=== PATIENT | male | born 1955 | race Caucasian/White ===

== ENCOUNTER 2018-10-06 20:04 | Inpatient (IN) | payer MEDICARE, OTHER, SELFPAY ==
[2018-10-06] VITALS (10 sets, daily range): BP systolic 115–181; BP diastolic 67–85; PULSE 94–103; RESP 15–25; TEMP 36.7–37.3; O2SAT 88–99; BMI 27.6; BMI 26.6; BMI 26.7
[2018-10-06] MEDS: 0.9% Normal Saline 1,000 ML 1000 ML IV ×2 (20:10→21:30)
[2018-10-06 20:16] LABS: Bedside Glucose > 500 mg/dL (70-110)
[2018-10-06 20:31] LABS: Absolute Lymphocyte Count 0.87 X10^3/ul (0.83-4.51); Absolute Neutrophil Count 7.8 X10^3/uL (2.0-7.7); Basophil# 0.02 X10^3/uL; Basophil% 0.2 % (0-1); Eosinophil# 0.01 X10^3/uL; Eosinophils% 0.1 % (0-5); Hematocrit 42.4 % (40-54); Hemoglobin 14.8 g/dl (13.0-16.5); Lymphocyte # 0.87 X10^3/ul (4.0); Lymphocyte % 9.6 % (19-41); Mean Corp Hgb Conc 34.9 g/gl (32-36); Mean Corpuscular Hgb 29.8 pg (27.0-32.0); Mean Corpuscular Volume 85.5 fL (80-94); Mean Platelet Vol. 11.8 fl (6.2-12.0); Monocyte# 0.37 X10^3/uL; Monocyte% 4.1 % (0-10); Neutrophil # 7.79 X10^3/uL (2.7-7.7); Neutrophil % 85.7 % (47-70); Platelet Count 250 K/mm3 (150-450); RBC Distribution Width CV 12.3 % (11.6-14.6); RBC Distribution Width SD 37.8 fl (35.1-43.9); Red Blood Count 4.96 M/mm3 (4.6-6.2); White Blood Count 9.1 K/mm3 (4.4-11.0)
[2018-10-06 20:32] LABS: POSITIVE COUNT NO; POSITIVE DIFFERENTIAL NO; POSITIVE MORPHOLOGY NO
[2018-10-06 20:46] LABS: Anion Gap 9 (5-15); BUN 44 mg/dL (7-18); BUN/Creat Ratio 19.6 RATIO (10-20); Calcium,Total 9.2 mg/dL (8.5-10.1); Chloride 82 mmol/L (98-107); Creatinine, Serum 2.25 mg/dL (0.70-1.30); EST Glomerular Filtration Rate 31 mL/min (>60); Est Glom Filt Rate - Afr Amer 38 mL/min (>60); Estimated Creatinine Clearance 34.86 ml/min; Glucose 1083 mg/dL (74-106); Potassium 5.2 mmol/L (3.5-5.1); Sodium Level 118 mmol/L (136-145)
--- NOTE | 2018-10-06 20:48 | ED.RN ---
CRITICAL LAB VALUES GIVEN TO RN AND PLACED ON CHART FOR MD TO REVIEW.
[2018-10-06 20:53] LABS: Bacteria 0 SEEN /hpf (None Seen); Mucous, Urine 0 SEEN /hpf (<or=2+); Red Blood Cells-Urine 0 SEEN /hpf (0-5); Squamous Epithelial Cells - UA 0 SEEN /hpf (0-5); White Blood Cells 0 SEEN /hpf (0-5)
[2018-10-06 20:57] LABS: Color, Urine Yellow (Yellow); Glucose, Dipstick 1000 mg/dl (Normal); Ketone-Dipstick Negative (Negative); Leukocyte Esterase-Dipstick Negative /ul (Negative); Nitrite-Dipstick Negative (Negative); Occult Blood-Urine Negative /ul (Negative); Protein-Dipstick Negative (Negative); Urine Bilirubin Dipstick Negative (Negative); Urine Clarity Clear (Clear); Urine Urobilinogen Normal (Normal)
--- NOTE | 2018-10-06 21:01 | NURSING ---
Pt straight cath for 1600cc of clear yellow urine. pt tolerated it well
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
[2018-10-06] MEDS: 0.9% Normal Saline 1,000 ML 250 ML IV (21:39)
[2018-10-06 21:43] LABS: AST(SGOT) 13 U/L (15-37); Alanine Aminotransfer ALT/SGPT 28 U/L (16-61); Albumin, Serum 3.6 g/dL (3.2-5.0); Alkaline Phosphatase 175 U/L (45-117); Bilirubin, Direct 0.16 mg/dL (0.00-0.30); Globulin 4.8 g/dL (2.2-4.2); Protein, Total 8.4 g/dL (6.4-8.2)
[2018-10-06 21:55] LABS: Bedside Glucose > 500 mg/dL (70-110)
[2018-10-06 22:36] LABS: Osmolality, Serum 331 mOsm/KG (280-301)
[2018-10-06 22:54] LABS: Anion Gap 9 (5-15); BUN 40 mg/dL (7-18); BUN/Creat Ratio 23.4 RATIO (10-20); Calcium,Total 8.3 mg/dL (8.5-10.1); Chloride 97 mmol/L (98-107); Creatinine, Serum 1.71 mg/dL (0.70-1.30); EST Glomerular Filtration Rate 43 mL/min (>60); Est Glom Filt Rate - Afr Amer 52 mL/min (>60); Estimated Creatinine Clearance 45.87 ml/min; Glucose 746 mg/dL (74-106); Potassium 3.8 mmol/L (3.5-5.1); Sodium Level 130 mmol/L (136-145)
--- NOTE | 2018-10-06 22:54 | NURSING ---
Patient's wallet given to Araseli Ho, daughter. Cellphone at bedside.
[2018-10-06 23:06] LABS: Bedside Glucose > 500 mg/dL (70-110)
[2018-10-06] MEDS: 0.9% NaCl IVPB Med Flush (250 mL) 15 ML IV (23:30)
[2018-10-06] MEDS: Potassium Chloride 10mEq/100mL 10 MEQ/100 ML IV.SOLN. 100 MEQ IV BOLUS (23:31)
[2018-10-07] VITALS (16 sets, daily range): BP systolic 116–167; BP diastolic 57–88; PULSE 81–102; RESP 14–19; TEMP 36.6–37.2; O2SAT 92–100
[2018-10-07 00:06] LABS: Bedside Glucose > 500 mg/dL (70-110)
[2018-10-07 00:25] LABS: Glucose 640 mg/dL (74-106)
[2018-10-07] MEDS: Potassium Chloride 40 MEQ in 0.45% Normal Saline 1,000 ML 150 MEQ IV (00:29)
[2018-10-07] MEDS: Potassium Chloride 10mEq/100mL 10 MEQ/100 ML IV.SOLN. 100 MEQ IV BOLUS ×3 (00:31→02:50)
[2018-10-07 01:41] LABS: Bedside Glucose 438 mg/dL (70-110)
[2018-10-07 03:42] LABS: Bedside Glucose 411 mg/dL (70-110)
[2018-10-07 03:42] LABS: Bedside Glucose 425 mg/dL (70-110)
[2018-10-07 03:44] LABS: Anion Gap 9 (5-15); BUN 33 mg/dL (7-18); BUN/Creat Ratio 21.7 RATIO (10-20); Calcium,Total 8.8 mg/dL (8.5-10.1); Chloride 102 mmol/L (98-107); Creatinine, Serum 1.52 mg/dL (0.70-1.30); EST Glomerular Filtration Rate 49 mL/min (>60); Est Glom Filt Rate - Afr Amer 59 mL/min (>60); Glucose 456 mg/dL (74-106); Potassium 4.6 mmol/L (3.5-5.1); Sodium Level 139 mmol/L (136-145)
[2018-10-07 04:36] LABS: Bedside Glucose 400 mg/dL (70-110)
[2018-10-07 05:36] LABS: Bedside Glucose 364 mg/dL (70-110)
[2018-10-07] MEDS: Lactated Ringers 1,000 ML 999 ML IV (06:34)
[2018-10-07 06:41] LABS: Bedside Glucose 318 mg/dL (70-110)
[2018-10-07 07:07] LABS: Anion Gap 6 (5-15); BUN 30 mg/dL (7-18); BUN/Creat Ratio 21.1 RATIO (10-20); Calcium,Total 8.8 mg/dL (8.5-10.1); Chloride 106 mmol/L (98-107); Creatinine, Serum 1.42 mg/dL (0.70-1.30); EST Glomerular Filtration Rate 53 mL/min (>60); Est Glom Filt Rate - Afr Amer 64 mL/min (>60); Estimated Creatinine Clearance 55.24 ml/min; Glucose 337 mg/dL (74-106); Potassium 4.3 mmol/L (3.5-5.1); Sodium Level 141 mmol/L (136-145)
[2018-10-07 07:56] LABS: Bedside Glucose 328 mg/dL (70-110)
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
[2018-10-07 08:41] LABS: Bedside Glucose 318 mg/dL (70-110)
--- NOTE | 2018-10-07 08:42 | PN_ITS ---
Patient Problems: Active and Suspected Problems HHNC (hyperglycemic hyperosmolar nonketotic coma) (Acute) Acute metabolic encephalopathy (Acute) Subjective: Patient was seen and examined. Admitted with [facility]. Patient says he has not seen a physician in 6 years. He was taking off his insulins. Denies any dizziness or palpitations or chest pain. Vitals/I&O's: Vital Signs Temp Pulse Resp BP Pulse Ox 98.1 F 90 19 H 136/71 H 99 10/07/18 08:00 10/07/18 08:00 10/07/18 08:00 10/07/18 08:00 10/07/18 08:00 Oxygen Flow Rate (L/min) 2 Oxygen Delivery Method Room Air Weight: 86.4 kg Body Mass Index (BMI) 26.6 Finger Stick Blood Glucose 318 Intake and Output for Last 24 Hours 10/05/18 10/06/18 10/07/18 23:59 23:59 23:59 Intake Total 2256 / 2256 1173 / 1173 Output Total 1250 / 1250 1550 / 1550 Balance 1006 / 1006 -377 / -377 General: Alert, Oriented x3, Cooperative, No apparent distress HEENT: Atraumatic, PERRLA, EOMI, Normocephalic Oral: Moist Mucosa Neck: Supple Lungs: Clear to auscultation, Normal air movement Cardiovascular: Regular rate, Regular Rhythm, Normal S1, Normal S2, No murmurs Abdomen: Bowel Sounds Present, Soft, Non Tender, Non-Distended, No Hepato- splenomegaly Extremities: No edema Skin: No rashes, No breakdown Musculoskeletal: No Tenderness to Palpation of Joints or Extremities Lymphatic: No Cervical, Supraclavicular, or Inguinal Adenopathy Neurological: Cranial nerves II-XII grossly intact, Neuro grossly intact Psych/Mental Status: Normal Affect, Appropriate Laboratory Results 10/06/18 20:08: POC Glucose > 500 H* 10/06/18 20:20: WBC 9.1, RBC 4.96, Hgb 14.8, Hct 42.4, MCV 85.5, MCH 29.8, MCHC 34.9, RDW 12.3, RDW Differential 37.8, Plt Count 250, MPV 11.8, Immature Gran % (Auto) 0.300, Neut % (Auto) 85.7 H, Lymph % (Auto) 9.6 L, [place] % (Auto) 4.1, Eos % (Auto) 0.1, Baso % (Auto) 0.2, Absolute Neuts (auto) 7.8 H, Absolute Lymphs (auto) 0.87, Total Counted Not Reportable 10/06/18 20:20: Sodium 118 L*, Potassium 5.2 H, Chloride 82 L, Carbon Dioxide 27.0, Anion Gap 9, BUN 44 H, Creatinine 2.25 H, Estim Creat Clear Calc 34.86, Est GFR (MDRD) Af Amer 38 L, Est GFR (MDRD) Non-Af 31 L, BUN/Creatinine Ratio 19.6, Glucose 1083 H*, Calcium 9.2 10/06/18 20:20: Total Bilirubin 0.50, Direct Bilirubin 0.16, AST 13 L, ALT 28, Alkaline Phosphatase 175 H, Total Protein 8.4 H, Albumin 3.6, Globulin 4.8 H 10/06/18 20:20: Acetone Level NEGATIVE 10/06/18 20:20: Serum Osmolality 331 H 10/06/18 20:45: Urine Color Yellow, Urine Clarity Clear, Urine pH 6.0, Ur Specific [place] 1.010, Urine Protein Negative, Urine Glucose (UA) 1000 H, Urine Ketones Negative, Urine Occult Blood Negative, Urine Nitrite Negative, Urine Bilirubin Negative, Urine Urobilinogen Normal, Ur Leukocyte Esterase Negative, Urine RBC 0 SEEN, Urine WBC 0 SEEN, Ur Squamous Epith Cells 0 SEEN, Urine Bacteria 0 SEEN, Urine Mucus 0 SEEN 10/06/18 21:38: POC Glucose > 500 H* 10/06/18 22:20: Sodium 130 L, Potassium 3.8, Chloride 97 L, Carbon Dioxide 24.0, Anion Gap 9, BUN 40 H, Creatinine 1.71 H, Estim Creat Clear Calc 45.87, Est GFR (MDRD) Af Amer 52 L, Est GFR (MDRD) Non-Af 43 L, BUN/Creatinine Ratio 23.4 H, Glucose 746 H*, Calcium 8.3 L 10/06/18 22:30: POC Glucose > 500 H* 10/06/18 23:54: POC Glucose > 500 H* 10/07/18 00:00: Glucose 640 H* 10/07/18 01:30: POC Glucose 438 H 10/07/18 02:32: POC Glucose 411 H 10/07/18 03:00: Sodium 139, Potassium 4.6, Chloride 102, Carbon Dioxide 28.0, Anion Gap 9, BUN 33 H, Creatinine 1.52 H, Estim Creat Clear Calc 51.60, Est GFR (MDRD) Af Amer 59 L, Est GFR (MDRD) Non-Af 49 L, BUN/Creatinine Ratio 21.7 H, Glucose 456 H*, Calcium 8.8 10/07/18 03:33: POC Glucose 425 H 10/07/18 04:30: POC Glucose 400 H 10/07/18 05:29: POC Glucose 364 H 10/07/18 06:32: POC Glucose 318 H 10/07/18 06:45: Sodium 141, Potassium 4.3, Chloride 106, Carbon Dioxide 29.0, Anion Gap 6, BUN 30 H, Creatinine 1.42 H, Estim Creat Clear Calc 55.24, Est GFR (MDRD) Af Amer 64, Est GFR (MDRD) Non-Af 53 L, BUN/Creatinine Ratio 21.1 H, Glucose 337 H, Calcium 8.8 10/07/18 07:47: POC Glucose 328 H 10/07/18 08:30: POC Glucose 318 H Current Medications Dextrose (D50w Syringe) 0 gm IV X1 PRN; Protocol PRN Reason: HYPOGLYCEMIA Enoxaparin Sodium (Lovenox) 40 mg SC DAILY@1000 GABI Insulin Human Lispro 100 unit/ (Sodium Chloride) 100 mls @ 9.13 mls/hr IV .[id number] [facility]; Protocol Last Admin: 10/06/18 22:31 Dose: Not Given Sodium Chloride () 250 mls @ 15 mls/hr IV .[id number] PRN PRN Reason: SALINE FLUSH Last Admin: 10/06/18 23:30 Dose: 15 mls/hr Magnesium Hydroxide (Milk Of Magnesia) 30 ml PO DAILY PRN PRN PRN Reason: Constipation Sodium Chloride () 5 - 15 ml IV UD PRN PRN Reason: SALINE FLUSH Medical Necessity - Tobacco Use Smoking Status: Former smoker Assessment/Plan All Active Problems HHNC (hyperglycemic hyperosmolar nonketotic coma) (Acute) Acute metabolic encephalopathy (Acute) 63y/o male with history of Type 2 DM, off medications for more than 3 years who comes in with altered mental status and found to have HHS. He has been managed on insulin drip. He is alert, oriented x3. 1. Acute metabolic encephalopathy secondary to HHS, resolved 2. HHS in a known Type 2 DM patient, who has been off insulin for more than 3 years, managed in ICU, On insulin drip, HgbA1c 15.7, will start on Lantus 10 units BID, ISS, plastics process hand consult 3. Dyslipidemia, will start on statin 4. DVT PPx- Lovenox SC Code Visit Inpatient E&M: 87383 Subs Hosp L2
[2018-10-07 09:03] LABS: Cholesterol 241 mg/dL (200); High Density Lipoprotein 37 mg/dL; Triglycerides 673 mg/dL
[2018-10-07] MEDS: Insulin Lispro 100 UNIT/ML INSULN.PEN SQ ×4 (09:16→21:51)
[2018-10-07] MEDS: 0.9% Normal Saline 1,000 ML 100 ML IV ×2 (09:17→17:41)
[2018-10-07 09:24] LABS: Hemoglobin A1c 15.7 % (4.2-6.3)
[2018-10-07 09:31] LABS: Bedside Glucose 241 mg/dL (70-110)
[2018-10-07] MEDS: Enoxaparin 40 MG/0.4 ML Syringe SC (10:00)
[2018-10-07 12:06] LABS: Bedside Glucose 391 mg/dL (70-110)
--- NOTE | 2018-10-07 15:30 | CASEMGMT ---
Assessment- SW met with patient. Introduced self and role at [facility]. Patient was willing to talk with SW. Living situation- Patient lives alone in a home with 2 levels. He mainly stays on 1 level. He sleeps in his recliner due to sinus issues. PCP: Dr Dipesh Amaro- Has not seen in about 6 years. Would like to stay with same Dr if he is still around Specialists: None DME: None ADL's/IADL's: Independent Past SNF/rehab: None Past HH: None LW: No POA: No Plan: SW met with patient. He said he has not been to see his dr in 6 years. He said he has not had to see his Dr as he has been doing fine up until now. He lives alone and is independent with all activities. He has a son and a daughter that are local and assist if needed. He said if he could not make decisions for himself he would prefer his daughter be his POA. JOSÉ told him SW will stop by tomorrow to see if he would like to complete HCPOA and HCLW. He said that would be fine. He plans on returning home at d/c. 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
[2018-10-07 17:31] LABS: Bedside Glucose 195 mg/dL (70-110)
[2018-10-07] MEDS: Atorvastatin Calcium 80 MG Tablet PO (21:50)
[2018-10-07 22:00] LABS: Bedside Glucose 294 mg/dL (70-110)
--- NOTE | 2018-10-08 00:54 | ED.DCSUM_ITS ---
- ER Visit Summary Date of Service: 10/07/18 Chief Complaint: Confusion History of Present Illness: The patient is a 63 M who please note it was driving erratically. Patient pulled over into a driveway and please stopped after. Family reports he has had increased confusion over the past several days. He does state that he used to have diabetes. He lost a lot of weight and was exercising. He was told a year and a half ago that he no longer had diabetes and can stop his medications. He has not taken any diabetes meds over this time and has not checked his blood sugar in the last year and a half. He does admit to increased thirst and urination recently. Physical Examination: Blood pressure is 159/70, temperature 99.1, heart rate 103, respiratory rate 22, pulse ox 91% on 2 L. Patient is sitting upright in bed. He is alert and talkative. Head neck examination is significant only for dry mucous membranes. Heart is regular rate and rhythm at the time of my exam. Lungs are clear. Abdomen is soft and nontender. Neuro exam reveals no focal deficits. Test Results: BG T on arrival was greater than 500. CBC was normal white count with a slight left shift. Chemistry studies significant for sodium of 118 and a chloride of 82. His glucose is 1083. Corrected sodium is 133. Potassium is 5.2, BUN 44, creatinine 2.25. Emergency Department Course and Treatment: Patient received 2 L IV fluid bolus followed by 250 cc/h. Insulin drip is initiated. At this time magnesium, LFTs, and serum acetone are added. Patient is discussed with both the chronic disease epidemiologist as well as the hospitalist. Patient will be admitted to the ICU. Treatment Plan: [] Disposition: Admit Impression: HHNC This note was generated with [employer] dictation software. It may contain incorrect words, spelling, and punctuation that were not noted in review of the chart prior to signing ED Disposition - Plan for ED Patient: Disposition: Acute Care [facility]
[2018-10-08 03:45] VITALS: BP 165/63; PULSE 89; RESP 14; TEMP 36.7; O2SAT 97
[2018-10-08 06:56] LABS: Bedside Glucose 297 mg/dL (70-110)
[2018-10-08 07:11] LABS: Anion Gap 7 (5-15); BUN 19 mg/dL (7-18); BUN/Creat Ratio 14.6 RATIO (10-20); Calcium,Total 8.2 mg/dL (8.5-10.1); Chloride 104 mmol/L (98-107); EST Glomerular Filtration Rate 59 mL/min (>60); Est Glom Filt Rate - Afr Amer 71 mL/min (>60); Estimated Creatinine Clearance 60.34 ml/min; Glucose 279 mg/dL (74-106); Magnesium 1.7 mg/dL (1.6-2.6); Phosphorus 3.3 mg/dL (2.5-4.9); Potassium 4.1 mmol/L (3.5-5.1); Sodium Level 140 mmol/L (136-145)
--- NOTE | 2018-10-08 07:40 | PCM.PN.INT ---
Subjective: Patient transferred out of the intensive care unit yesterday. Patient reports he is been doing well on the floor. No nausea or vomiting has been reported. Patient continues to tolerate room air. Patient feels he is strong enough to go home. General: Alert, Oriented x3, Cooperative, No apparent distress, Well developed, Well nourished, - - Speaking in full sentences. HEENT: Atraumatic, PERRLA, EOMI, Normocephalic, - - No scleral icterus or injection noted. Oral: Moist Mucosa, No Gingival or Mucosal Lesions/ Ulcerations Neck: Supple, No JVD, No Nodes, Trachea Midline Lungs: Clear to auscultation, Normal air movement, No rhonchi, No wheeze, No rales Cardiovascular: Regular rate, Regular Rhythm, Normal S1, Normal S2, No murmurs, No rub noted, No Gallop Abdomen: Bowel Sounds Present, Soft, Non Tender, Non-Distended, Obese Extremities: No clubbing, No cyanosis, No edema, Capillary Refill Less than 3 Seconds Skin: No rashes, No breakdown Musculoskeletal: No Tenderness to Palpation of Joints or Extremities Lymphatic: No Cervical, Supraclavicular, or Inguinal Adenopathy Neurological: Cranial nerves II-XII grossly intact, Neuro grossly intact, Motor Exam 5/5 strength throughout Psych/Mental Status: Alert and oriented to time, place, person, mood and affect Vital Signs Temp Pulse Resp BP Pulse Ox 36.7 C 89 14 165/63 H 97 10/08/18 03:45 10/08/18 03:45 10/08/18 03:45 10/08/18 03:45 10/08/18 03:45 Oxygen Flow Rate (L/min) 2 Oxygen Delivery Method Room Air Weight: 90.6 kg Body Mass Index (BMI) 26.6 Finger Stick Blood Glucose 241 Intake and Output for Last 24 Hours 10/06/18 10/07/18 10/08/18 23:59 23:59 23:59 Intake Total 2256 / 2256 3134 / 3134 452 / 452 Output Total 1250 / 1250 2925 / 2925 470 / 470 Balance 1006 / 1006 209 / 209 -18 / -18 Labs (Last 48 Hours) 10/06/18 10/06/18 10/06/18 20:08 20:20 20:20 WBC 9.1 RBC 4.96 Hgb 14.8 Hct 42.4 MCV 85.5 MCH 29.8 MCHC 34.9 RDW 12.3 RDW Differential 37.8 Plt Count 250 MPV 11.8 Immature Gran % (Auto) 0.300 Neut % (Auto) 85.7 H Lymph % (Auto) 9.6 L [place] % (Auto) 4.1 Eos % (Auto) 0.1 Baso % (Auto) 0.2 Absolute Neuts (auto) 7.8 H Absolute Lymphs (auto) 0.87 Total Counted Not Reportable Sodium 118 L* Potassium 5.2 H Chloride 82 L Carbon Dioxide 27.0 Anion Gap 9 BUN 44 H Creatinine 2.25 H Estim Creat Clear Calc 34.86 Est GFR (MDRD) Af Amer 38 L Est GFR (MDRD) Non-Af 31 L BUN/Creatinine Ratio 19.6 Glucose 1083 H* Hemoglobin A1c Serum Osmolality Calcium 9.2 Phosphorus Magnesium Total Bilirubin Direct Bilirubin AST ALT Alkaline Phosphatase Total Protein Albumin Globulin Triglycerides Cholesterol LDL Cholesterol VLDL Cholesterol HDL Cholesterol Urine Color Urine Clarity Urine pH Ur Specific [place] Urine Protein Urine Glucose (UA) Urine Ketones Urine Occult Blood Urine Nitrite Urine Bilirubin Urine Urobilinogen Ur Leukocyte Esterase Urine RBC Urine WBC Ur Squamous Epith Cells Urine Bacteria Urine Mucus Acetone Level POC Glucose > 500 H* 10/06/18 10/06/18 10/06/18 20:20 20:20 20:20 WBC RBC Hgb Hct MCV MCH MCHC RDW RDW Differential Plt Count MPV Immature Gran % (Auto) Neut % (Auto) Lymph % (Auto) [place] % (Auto) Eos % (Auto) Baso % (Auto) Absolute Neuts (auto) Absolute Lymphs (auto) Total Counted Sodium Potassium Chloride Carbon Dioxide Anion Gap BUN Creatinine Estim Creat Clear Calc Est GFR (MDRD) Af Amer Est GFR (MDRD) Non-Af BUN/Creatinine Ratio Glucose Hemoglobin A1c Serum Osmolality 331 H Calcium Phosphorus Magnesium Total Bilirubin 0.50 Direct Bilirubin 0.16 AST 13 L ALT 28 Alkaline Phosphatase 175 H Total Protein 8.4 H Albumin 3.6 Globulin 4.8 H Triglycerides Cholesterol LDL Cholesterol VLDL Cholesterol HDL Cholesterol Urine Color Urine Clarity Urine pH Ur Specific [place] Urine Protein Urine Glucose (UA) Urine Ketones Urine Occult Blood Urine Nitrite Urine Bilirubin Urine Urobilinogen Ur Leukocyte Esterase Urine RBC Urine WBC Ur Squamous Epith Cells Urine Bacteria Urine Mucus Acetone Level NEGATIVE POC Glucose 10/06/18 10/06/18 10/06/18 20:20 20:45 21:38 WBC RBC Hgb Hct MCV MCH MCHC RDW RDW Differential Plt Count MPV Immature Gran % (Auto) Neut % (Auto) Lymph % (Auto) [place] % (Auto) Eos % (Auto) Baso % (Auto) Absolute Neuts (auto) Absolute Lymphs (auto) Total Counted Sodium Potassium Chloride Carbon Dioxide Anion Gap BUN Creatinine Estim Creat Clear Calc Est GFR (MDRD) Af Amer Est GFR (MDRD) Non-Af BUN/Creatinine Ratio Glucose Hemoglobin A1c 15.7 H Serum Osmolality Calcium Phosphorus Magnesium Total Bilirubin Direct Bilirubin AST ALT Alkaline Phosphatase Total Protein Albumin Globulin Triglycerides Cholesterol LDL Cholesterol VLDL Cholesterol HDL Cholesterol Urine Color Yellow Urine Clarity Clear Urine pH 6.0 Ur Specific [place] 1.010 Urine Protein Negative Urine Glucose (UA) 1000 H Urine Ketones Negative Urine Occult Blood Negative Urine Nitrite Negative Urine Bilirubin Negative Urine Urobilinogen Normal Ur Leukocyte Esterase Negative Urine RBC 0 SEEN Urine WBC 0 SEEN Ur Squamous Epith Cells 0 SEEN Urine Bacteria 0 SEEN Urine Mucus 0 SEEN Acetone Level POC Glucose > 500 H* 10/06/18 10/06/18 10/06/18 22:20 22:30 23:54 WBC RBC Hgb Hct MCV MCH MCHC RDW RDW Differential Plt Count MPV Immature Gran % (Auto) Neut % (Auto) Lymph % (Auto) [place] % (Auto) Eos % (Auto) Baso % (Auto) Absolute Neuts (auto) Absolute Lymphs (auto) Total Counted Sodium 130 L Potassium 3.8 Chloride 97 L Carbon Dioxide 24.0 Anion Gap 9 BUN 40 H Creatinine 1.71 H Estim Creat Clear Calc 45.87 Est GFR (MDRD) Af Amer 52 L Est GFR (MDRD) Non-Af 43 L BUN/Creatinine Ratio 23.4 H Glucose 746 H* Hemoglobin A1c Serum Osmolality Calcium 8.3 L Phosphorus Magnesium Total Bilirubin Direct Bilirubin AST ALT Alkaline Phosphatase Total Protein Albumin Globulin Triglycerides Cholesterol LDL Cholesterol VLDL Cholesterol HDL Cholesterol Urine Color Urine Clarity Urine pH Ur Specific [place] Urine Protein Urine Glucose (UA) Urine Ketones Urine Occult Blood Urine Nitrite Urine Bilirubin Urine Urobilinogen Ur Leukocyte Esterase Urine RBC Urine WBC Ur Squamous Epith Cells Urine Bacteria Urine Mucus Acetone Level POC Glucose > 500 H* > 500 H* 10/07/18 10/07/18 10/07/18 00:00 01:30 02:32 WBC RBC Hgb Hct MCV MCH MCHC RDW RDW Differential Plt Count MPV Immature Gran % (Auto) Neut % (Auto) Lymph % (Auto) [place] % (Auto) Eos % (Auto) Baso % (Auto) Absolute Neuts (auto) Absolute Lymphs (auto) Total Counted Sodium Potassium Chloride Carbon Dioxide Anion Gap BUN Creatinine Estim Creat Clear Calc Est GFR (MDRD) Af Amer Est GFR (MDRD) Non-Af BUN/Creatinine Ratio Glucose 640 H* Hemoglobin A1c Serum Osmolality Calcium Phosphorus Magnesium Total Bilirubin Direct Bilirubin AST ALT Alkaline Phosphatase Total Protein Albumin Globulin Triglycerides Cholesterol LDL Cholesterol VLDL Cholesterol HDL Cholesterol Urine Color Urine Clarity Urine pH Ur Specific [place] Urine Protein Urine Glucose (UA) Urine Ketones Urine Occult Blood Urine Nitrite Urine Bilirubin Urine Urobilinogen Ur Leukocyte Esterase Urine RBC Urine WBC Ur Squamous Epith Cells Urine Bacteria Urine Mucus Acetone Level POC Glucose 438 H 411 H 10/07/18 10/07/18 10/07/18 03:00 03:33 04:30 WBC RBC Hgb Hct MCV MCH MCHC RDW RDW Differential Plt Count MPV Immature Gran % (Auto) Neut % (Auto) Lymph % (Auto) [place] % (Auto) Eos % (Auto) Baso % (Auto) Absolute Neuts (auto) Absolute Lymphs (auto) Total Counted Sodium 139 Potassium 4.6 Chloride 102 Carbon Dioxide 28.0 Anion Gap 9 BUN 33 H Creatinine 1.52 H Estim Creat Clear Calc 51.60 Est GFR (MDRD) Af Amer 59 L Est GFR (MDRD) Non-Af 49 L BUN/Creatinine Ratio 21.7 H Glucose 456 H* Hemoglobin A1c Serum Osmolality Calcium 8.8 Phosphorus Magnesium Total Bilirubin Direct Bilirubin AST ALT Alkaline Phosphatase Total Protein Albumin Globulin Triglycerides Cholesterol LDL Cholesterol VLDL Cholesterol HDL Cholesterol Urine Color Urine Clarity Urine pH Ur Specific [place] Urine Protein Urine Glucose (UA) Urine Ketones Urine Occult Blood Urine Nitrite Urine Bilirubin Urine Urobilinogen Ur Leukocyte Esterase Urine RBC Urine WBC Ur Squamous Epith Cells Urine Bacteria Urine Mucus Acetone Level POC Glucose 425 H 400 H 10/07/18 10/07/18 10/07/18 05:29 06:32 06:45 WBC RBC Hgb Hct MCV MCH MCHC RDW RDW Differential Plt Count MPV Immature Gran % (Auto) Neut % (Auto) Lymph % (Auto) [place] % (Auto) Eos % (Auto) Baso % (Auto) Absolute Neuts (auto) Absolute Lymphs (auto) Total Counted Sodium 141 Potassium 4.3 Chloride 106 Carbon Dioxide 29.0 Anion Gap 6 BUN 30 H Creatinine 1.42 H Estim Creat Clear Calc 55.24 Est GFR (MDRD) Af Amer 64 Est GFR (MDRD) Non-Af 53 L BUN/Creatinine Ratio 21.1 H Glucose 337 H Hemoglobin A1c Serum Osmolality Calcium 8.8 Phosphorus Magnesium Total Bilirubin Direct Bilirubin AST ALT Alkaline Phosphatase Total Protein Albumin Globulin Triglycerides Cholesterol LDL Cholesterol VLDL Cholesterol HDL Cholesterol Urine Color Urine Clarity Urine pH Ur Specific [place] Urine Protein Urine Glucose (UA) Urine Ketones Urine Occult Blood Urine Nitrite Urine Bilirubin Urine Urobilinogen Ur Leukocyte Esterase Urine RBC Urine WBC Ur Squamous Epith Cells Urine Bacteria Urine Mucus Acetone Level POC Glucose 364 H 318 H 10/07/18 10/07/18 10/07/18 06:45 07:47 08:30 WBC RBC Hgb Hct MCV MCH MCHC RDW RDW Differential Plt Count MPV Immature Gran % (Auto) Neut % (Auto) Lymph % (Auto) [place] % (Auto) Eos % (Auto) Baso % (Auto) Absolute Neuts (auto) Absolute Lymphs (auto) Total Counted Sodium Potassium Chloride Carbon Dioxide Anion Gap BUN Creatinine Estim Creat Clear Calc Est GFR (MDRD) Af Amer Est GFR (MDRD) Non-Af BUN/Creatinine Ratio Glucose Hemoglobin A1c Serum Osmolality Calcium Phosphorus Magnesium Total Bilirubin Direct Bilirubin AST ALT Alkaline Phosphatase Total Protein Albumin Globulin Triglycerides 673 H Cholesterol 241 H LDL Cholesterol TNP VLDL Cholesterol TNP HDL Cholesterol 37 L Urine Color Urine Clarity Urine pH Ur Specific [place] Urine Protein Urine Glucose (UA) Urine Ketones Urine Occult Blood Urine Nitrite Urine Bilirubin Urine Urobilinogen Ur Leukocyte Esterase Urine RBC Urine WBC Ur Squamous Epith Cells Urine Bacteria Urine Mucus Acetone Level POC Glucose 328 H 318 H 10/07/18 10/07/18 10/07/18 09:15 11:55 17:21 WBC RBC Hgb Hct MCV MCH MCHC RDW RDW Differential Plt Count MPV Immature Gran % (Auto) Neut % (Auto) Lymph % (Auto) [place] % (Auto) Eos % (Auto) Baso % (Auto) Absolute Neuts (auto) Absolute Lymphs (auto) Total Counted Sodium Potassium Chloride Carbon Dioxide Anion Gap BUN Creatinine Estim Creat Clear Calc Est GFR (MDRD) Af Amer Est GFR (MDRD) Non-Af BUN/Creatinine Ratio Glucose Hemoglobin A1c Serum Osmolality Calcium Phosphorus Magnesium Total Bilirubin Direct Bilirubin AST ALT Alkaline Phosphatase Total Protein Albumin Globulin Triglycerides Cholesterol LDL Cholesterol VLDL Cholesterol HDL Cholesterol Urine Color Urine Clarity Urine pH Ur Specific [place] Urine Protein Urine Glucose (UA) Urine Ketones Urine Occult Blood Urine Nitrite Urine Bilirubin Urine Urobilinogen Ur Leukocyte Esterase Urine RBC Urine WBC Ur Squamous Epith Cells Urine Bacteria Urine Mucus Acetone Level POC Glucose 241 H 391 H 195 H 10/07/18 10/08/18 10/08/18 21:49 06:45 06:50 WBC RBC Hgb Hct MCV MCH MCHC RDW RDW Differential Plt Count MPV Immature Gran % (Auto) Neut % (Auto) Lymph % (Auto) [place] % (Auto) Eos % (Auto) Baso % (Auto) Absolute Neuts (auto) Absolute Lymphs (auto) Total Counted Sodium 140 Potassium 4.1 Chloride 104 Carbon Dioxide 29.0 Anion Gap 7 BUN 19 H Creatinine 1.30 Estim Creat Clear Calc 60.34 Est GFR (MDRD) Af Amer 71 Est GFR (MDRD) Non-Af 59 L BUN/Creatinine Ratio 14.6 Glucose 279 H Hemoglobin A1c Serum Osmolality Calcium 8.2 L Phosphorus 3.3 Magnesium 1.7 Total Bilirubin Direct Bilirubin AST ALT Alkaline Phosphatase Total Protein Albumin Globulin Triglycerides Cholesterol LDL Cholesterol VLDL Cholesterol HDL Cholesterol Urine Color Urine Clarity Urine pH Ur Specific [place] Urine Protein Urine Glucose (UA) Urine Ketones Urine Occult Blood Urine Nitrite Urine Bilirubin Urine Urobilinogen Ur Leukocyte Esterase Urine RBC Urine WBC Ur Squamous Epith Cells Urine Bacteria Urine Mucus Acetone Level POC Glucose 294 H 297 H Medical Necessity - Tobacco Use Smoking Status: Former smoker Assessment/Plan All Active Problems HHNC (hyperglycemic hyperosmolar nonketotic coma) (Acute) Acute metabolic encephalopathy (Acute) RECOMMENDATIONS: 1. Optimization of insulin therapy 2. Continue aggressive p.o. hydration 3. Outpatient workup for pancreatic function versus adrenal adenoma 4. Hemodynamically stable on room air. Will sign off from a critical care perspective IMPRESSIONS: 1. Acute metabolic encephalopathy secondary to hyperosmolar nonketotic state Unclear etiology of recurrence of diabetes mellitus. Patient with no treatment for over 6 years, but hemoglobin A1c would suggest that hyperglycemia significant over the last 3 months. Patient's weight is not significantly changed. Patient will likely require outpatient workup for pancreatic failure versus adrenal adenoma. Continue to optimize insulin therapy, but patient appears to be hemodynamically stable on room air. Will sign off from a critical care perspective. 2. Acute kidney injury RESOLVED > patient presented with a creatinine of 2.25. This is likely secondary to osmotic diuresis from hyperglycemia. Patient's baseline creatinine appears to be 1.4. We will continue to aggressively hydrate and follow urine output. Low clinical suspicion for need of renal replacement therapy at this time. 3. Hypertension/hypercholesterolemia/GERD Complicates care, management, recovery and prognosis. Patient's elevated blood pressure appears to be a new diagnosis. We will continue to monitor. Code Visit Inpatient E&M: 37865 Subs Hosp L2
--- NOTE | 2018-10-08 07:41 | CASEMGMT ---
Assessment- SW met with patient. Introduced self and role at [facility]. Patient was willing to talk with SW. Living situation- Patient lives alone in a home with 2 levels. He mainly stays on 1 level. He sleeps in his recliner due to sinus issues. PCP: Dr Dipesh Amaro- Has not seen in about 6 years. Would like to stay with same Dr if he is still around Specialists: None DME: None ADL's/IADL's: Independent Past SNF/rehab: None Past HH: None LW: No POA: No Plan: SW met with patient. He said he has not been to see his dr in 6 years. He said he has not had to see his Dr as he has been doing fine up until now. He lives alone and is independent with all activities. He has a son and a daughter that are local and assist if needed. He said if he could not make decisions for himself he would prefer his daughter be his POA. JOSÉ told him SW will stop by tomorrow to see if he would like to complete HCPOA and HCLW. He said that would be fine. He plans on returning home at d/c. 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
[2018-10-08] MEDS: Insulin Lispro 100 UNIT/ML INSULN.PEN SQ ×2 (08:53→11:17)
[2018-10-08] MEDS: Enoxaparin 40 MG/0.4 ML Syringe SC (08:55)
[2018-10-08] MEDS: Fluticasone 0.05% 1 SPRAY NASAL.SRY 2 SPRAY NASAL (08:55)
[2018-10-08 09:40] VITALS: BP 134/78; PULSE 98; RESP 16; TEMP 36.9; O2SAT 96
--- NOTE | 2018-10-08 11:13 | DCINST_ITS ---
- Discharge Diagnoses Current Active Problems: Current Active and Chronic Problems HHNC (hyperglycemic hyperosmolar nonketotic coma) (Acute) Acute metabolic encephalopathy (Acute) Reason(s) for Visit for Discharge Instructions: Hyperglycemia You will use the following diet at home:: Calorie/Carbohydrate Controlled (specify 1200, 1400, etc), Cardiac Your food should be the consistency of: Regular Your liquids should be the consistency of: Regular/Thin Discharge Activity: Return to Normal Activity Additional Instructions: Continue to monitor your blood sugar at least 3 times a day. Need to follow a low calorie, low fat diet. Follow-up with your primary care doctor within 1 -2. Allergies/Adverse Reactions: Allergies codeine Allergy (Verified 10/06/18 20:55) Anaphylaxis Medications to take at Discharge Omeprazole [Prilosec] 20 mg PO DAILY #30 capsule 02/14/14 Dextrose [Glucose Gel] 38 gm PO UD #1 gel..gram. 10/28/14 Atorvastatin Calcium [Lipitor] 80 mg PO QHS #30 tablet 10/08/18 Fluticasone 0.05% [Flonase Nasal [place]] 2 spray NASAL DAILY #1 bottle 10/08/18 Insulin Glargine [Lantus SoloStar Pen] 10 units SC BID #1 pen 10/08/18 Metformin HCl 500 mg PO BID #60 tablet 10/08/18 The following prescriptions were given: Atorvastatin Calcium [Lipitor] 80 mg PO QHS #30 tablet Fluticasone 0.05% [Flonase Nasal [place]] 2 spray NASAL DAILY #1 bottle Insulin Glargine [Lantus SoloStar Pen] 10 units SC BID #1 pen Metformin HCl 500 mg PO BID #60 tablet Primary Care Physician: Dipesh Amaro [Primary Care Provider] - Please follow up with your Primary Care Physician in: within 1-2 weeks Test Results: Test results from this visit will be discussed in further detail at your follow- up appointment, if applicable. Proposed Discharge Date: 10/08/18
--- NOTE | 2018-10-08 11:14 | DS.PCM_ITS ---
Discharge Date and Diagnosis Date of Admission: 10/06/18 Date of Discharge: 10/08/18 - Primary Discharge Diagnosis Active and Suspected Problems HHNC (hyperglycemic hyperosmolar nonketotic coma) (Acute) Acute metabolic encephalopathy (Acute) - Secondary Discharge Diagnosis Chronic Problems GERD (gastroesophageal reflux disease) (Chronic) Overweight (BMI 25.0-29.9) (Chronic) Hospital Course and Treatment Critical care Operations: None Procedures: None Summary of Care Provided: 63y/o male with history of Type 2 DM, off medications for more than 3 years who comes in with altered mental status and found to have HHS. He has been managed on insulin drip in the ICU. He improved in his mentation soon after admission. He was transitioned to Lantus BID, HgbA1c was 15.7. He was seen by the squeegee finisher. His lipid profile showed dyslipidemia, started on statin. He will follow-up with his primary care doctor within 1-2 weeks. Subjective: On the day of discharge, patient was seen and examined. He felt well. He denied any new complains. Objective: Physical exam: General: Alert, Oriented x3, Cooperative, No apparent distress HEENT: Atraumatic, PERRLA, EOMI, Normocephalic Oral: Moist Mucosa Neck: Supple Lungs: Clear to auscultation, Normal air movement Cardiovascular: Regular rate, Regular Rhythm, Normal S1, Normal S2, No murmurs Abdomen: Bowel Sounds Present, Soft, Non Tender, Non-Distended, No Hepato- splenomegaly Extremities: No edema Skin: No rashes, No breakdown Musculoskeletal: No Tenderness to Palpation of Joints or Extremities Lymphatic: No Cervical, Supraclavicular, or Inguinal Adenopathy Neurological: Cranial nerves II-XII grossly intact, Neuro grossly intact Psych/Mental Status: Normal Affect, Appropriate - Physical Exam Vital Signs Temp Pulse Resp BP Pulse Ox 98.4 F 98 16 134/78 H 96 10/08/18 09:40 10/08/18 09:40 10/08/18 09:40 10/08/18 09:40 10/08/18 09:40 Oxygen Flow Rate (L/min) 2 Oxygen Delivery Method Room Air Weight: 90.6 kg Body Mass Index (BMI) 26.6 Finger Stick Blood Glucose 241 Intake and Output for Last 24 Hours 10/06/18 10/07/18 10/08/18 23:59 23:59 23:59 Intake Total 2256 / 2256 3134 / 3134 452 / 452 Output Total 1250 / 1250 2925 / 2925 470 / 470 Balance 1006 / 1006 209 / 209 -18 / -18 Laboratory Tests Past 24 Hrs 10/08/18 06:45 Sodium 140 Potassium 4.1 Chloride 104 Carbon Dioxide 29.0 Anion Gap 7 BUN 19 H Creatinine 1.30 Estim Creat Clear Calc 60.34 Est GFR (MDRD) Af Amer 71 Est GFR (MDRD) Non-Af 59 L BUN/Creatinine Ratio 14.6 Glucose 279 H Calcium 8.2 L Phosphorus 3.3 Magnesium 1.7 POC Glucose 10/08/18 10/07/18 10/07/18 06:50 21:49 17:21 POC Glucose 297 H 294 H 195 H 10/07/18 11:55 POC Glucose 391 H Discharge Diet: Low fat/ Low Cholesterol, 2000 mg Sodium Diet, Carb Control Diet Discharge Activity: Return to Normal Activity Home Medications: Medications to take at Discharge Omeprazole [Prilosec] 20 mg PO DAILY #30 capsule 02/14/14 Dextrose [Glucose Gel] 38 gm PO UD #1 gel..gram. 10/28/14 Atorvastatin Calcium [Lipitor] 80 mg PO QHS #30 tablet 10/08/18 Fluticasone 0.05% [Flonase Nasal [place]] 2 spray NASAL DAILY #1 bottle 10/08/18 Insulin Glargine [Lantus SoloStar Pen] 10 units SC BID #1 pen 10/08/18 Metformin HCl 500 mg PO BID #60 tablet 10/08/18 Following Prescrptions Were Given to Patient: Atorvastatin Calcium [Lipitor] 80 mg PO QHS #30 tablet Fluticasone 0.05% [Flonase Nasal [place]] 2 spray NASAL DAILY #1 bottle Insulin Glargine [Lantus SoloStar Pen] 10 units SC BID #1 pen Metformin HCl 500 mg PO BID #60 tablet Primary Care Physician: Dipesh Amaro [Primary Care Provider] - Please follow up with your Primary Care Physician in: within 1-2 weeks Disposition: Home Minutes spent on discharge:: 40 Patient Condition:: Stable Medical Necessity - Tobacco Use Smoking Status: Former smoker Tobacco Use: Non-smoker Meaningful Use Info Meaningful Use Diagnoses (Choose all that apply): None applicable Code Visit Inpatient E&M: 55561 Subs Hosp L2
--- NOTE | 2018-10-08 11:31 | CASEMGMT ---
SW completed advance directives with patient. Copies made and given to patient along with originals. SW also put a copy of each in his chart for [facility]. [place] RO MSW
[2018-10-08 11:50] LABS: Bedside Glucose 337 mg/dL (70-110)
--- NOTE | 2018-10-08 11:51 | PHA.DC.MC ---
Pharmacy Service has performed discharge medication reconciliation and counseling for this patient. The patient's discharge medication list was reviewed for discrepancies and discrepancies were resolved. The patient was counseled on the following discharge medications and changes in medications for homegoing were reviewed. 1. LANTUS 2. METFORMIN 3. ATORVASTATIN The Reason for Use, instructions for use, and potential side effects were reviewed for all new medications. The patient's questions regarding all of their medications were answered. The patient demonstrated some understanding but would benefit from further education and reinforcement. Home Medications Omeprazole [Prilosec] 20 mg PO DAILY #30 capsule 02/14/14 Dextrose [Glucose Gel] 38 gm PO UD #1 gel..gram. 10/28/14 Atorvastatin Calcium [Lipitor] 80 mg PO QHS #30 tablet 10/08/18 Fluticasone 0.05% [Flonase Nasal [place]] 2 spray NASAL DAILY #1 bottle 10/08/18 Insulin Glargine [Lantus SoloStar Pen] 10 units SC BID #1 pen 10/08/18 Metformin HCl 500 mg PO BID #60 tablet 10/08/18
--- NOTE | 2018-10-08 12:29 | CASEMGMT ---
JOSÉ gave patient his old PCP's office address and phone number so he can schedule an appt with him. Soco RO MSW
[2018-10-08 15:10] VITALS: BP 143/78; PULSE 90; RESP 18; TEMP 37.2; O2SAT 96
== END 2018-10-08 17:13 | disposition home or self-care (01) | DRG 637 ==
LOC: ED 21:23 → ICU 21:42 → PCU 10-08 07:19
PROVIDERS: Emergency Medicine; Internal Medicine Critical Care Medicine; Admitting Provider Hospitalist; Emergency Provider Emergency Medicine; Family Provider Family Medicine; PCP Family Medicine; Referring Provider Hospitalist; Visit Provider Internal Medicine
DX: E11.00 Type 2 diabetes mellitus with hyperosmolarity without nonketotic hyperglycemic-hyperosmolar coma (NKHHC) (principal); G93.41 Metabolic encephalopathy; N17.9 Acute kidney failure, unspecified; E66.3 Overweight; Z68.27 Body mass index [BMI] 27.0-27.9, adult; K21.9 Gastro-esophageal reflux disease without esophagitis; E78.5 Hyperlipidemia, unspecified
CPT/HCPCS: 36415; 80048; 80061; 80076; 81001; 82009; 82947; 82962; 83036; 83735; 83930; 84100; 85025; 97162; 97166; 97530; 97802; 99285; J7030; J7050; J7120; P9612; A4216

== ENCOUNTER → 2018-10-27 | Outpatient (CLI) | payer MEDICARE, OTHER, SELFPAY ==
[2018-10-06 22:17] VITALS: BMI 26.6
[2018-10-27 17:26] LABS: Absolute Lymphocyte Count 1.78 X10^3/ul (0.83-4.51); Absolute Neutrophil Count 3.4 X10^3/uL (2.0-7.7); Basophil# 0.02 X10^3/uL; Basophil% 0.4 % (0-1); Hematocrit 35.4 % (40-54); Hemoglobin 11.5 g/dl (13.0-16.5); Lymphocyte # 1.78 X10^3/ul (4.0); Lymphocyte % 31.6 % (19-41); Mean Corp Hgb Conc 32.5 g/gl (32-36); Mean Corpuscular Hgb 28.8 pg (27.0-32.0); Mean Corpuscular Volume 88.7 fL (80-94); Mean Platelet Vol. 11.2 fl (6.2-12.0); Monocyte# 0.47 X10^3/uL; Monocyte% 8.3 % (0-10); Neutrophil # 3.36 X10^3/uL (2.7-7.7); Neutrophil % 59.7 % (47-70); Platelet Count 245 K/mm3 (150-450); RBC Distribution Width CV 13.2 % (11.6-14.6); RBC Distribution Width SD 42.5 fl (35.1-43.9); Red Blood Count 3.99 M/mm3 (4.6-6.2); White Blood Count 5.6 K/mm3 (4.4-11.0)
[2018-10-27 17:31] LABS: POSITIVE COUNT NO; POSITIVE DIFFERENTIAL NO; POSITIVE MORPHOLOGY NO
[2018-10-27 17:51] LABS: BUN 19 mg/dL (7-18); EST Glomerular Filtration Rate 65 mL/min (>60); Glucose 95 mg/dL (74-106)
[2018-10-27 17:52] LABS: ALB/GLOB Ratio 0.9 RATIO (0.9-2.4); AST(SGOT) 52 U/L (15-37); Alanine Aminotransfer ALT/SGPT 51 U/L (16-61); Albumin, Serum 3.4 g/dL (3.2-5.0); Alkaline Phosphatase 175 U/L (45-117); Anion Gap 6 (5-15); BUN/Creat Ratio 15.8 RATIO (10-20); Chloride 102 mmol/L (98-107); Est Glom Filt Rate - Afr Amer 78 mL/min (>60); Globulin 3.6 g/dL (2.2-4.2); Potassium 3.3 mmol/L (3.5-5.1); Sodium Level 137 mmol/L (136-145); T4 Free Direct 1.19 ng/dL (0.76-1.46); Thyroid Stim Hormone (TSH) 1.64 uIU/mL (0.358-3.74)
[2018-10-28 10:43] LABS: Ferritin 226 ng/mL (26-388); Iron 62 ug/dL (65-175)
== END | disposition home or self-care (01) ==
LOC: BFHLAB 15:11
PROVIDERS: Family Provider Family Medicine; PCP Family Medicine; Visit Provider Family Medicine
DX: E78.5 Hyperlipidemia, unspecified (principal); R00.1 Bradycardia, unspecified; E11.65 Type 2 diabetes mellitus with hyperglycemia; D64.9 Anemia, unspecified
CPT/HCPCS: 36415; 80053; 82728; 83540; 84439; 84443; 85025

== ENCOUNTER → 2018-11-24 | Outpatient (CLI) | payer MEDICARE, OTHER, SELFPAY ==
[2018-10-06 22:17] VITALS: BMI 26.6
[2018-11-24 17:31] LABS: Absolute Lymphocyte Count 1.77 X10^3/ul (0.83-4.51); Absolute Neutrophil Count 3.1 X10^3/uL (2.0-7.7); Basophil# 0.02 X10^3/uL; Basophil% 0.3 % (0-1); Eosinophils% 5.2 % (0-5); Hematocrit 38.4 % (40-54); Hemoglobin 12.7 g/dl (13.0-16.5); Lymphocyte # 1.77 X10^3/ul (4.0); Lymphocyte % 30.7 % (19-41); Mean Corp Hgb Conc 33.1 g/gl (32-36); Mean Corpuscular Hgb 29.2 pg (27.0-32.0); Mean Corpuscular Volume 88.3 fL (80-94); Mean Platelet Vol. 12.4 fl (6.2-12.0); Monocyte% 10.4 % (0-10); Neutrophil # 3.07 X10^3/uL (2.7-7.7); Neutrophil % 53.2 % (47-70); Platelet Count 209 K/mm3 (150-450); RBC Distribution Width CV 13.5 % (11.6-14.6); RBC Distribution Width SD 42.9 fl (35.1-43.9); Red Blood Count 4.35 M/mm3 (4.6-6.2); White Blood Count 5.8 K/mm3 (4.4-11.0)
[2018-11-24 17:32] LABS: POSITIVE COUNT NO; POSITIVE DIFFERENTIAL NO; POSITIVE MORPHOLOGY NO
[2018-11-24 18:01] LABS: AST(SGOT) 80 U/L (15-37); Alanine Aminotransfer ALT/SGPT 115 U/L (16-61); Albumin, Serum 3.8 g/dL (3.2-5.0); Alkaline Phosphatase 282 U/L (45-117); Anion Gap 9 (5-15); BUN 20 mg/dL (7-18); BUN/Creat Ratio 19.2 RATIO (10-20); Calcium,Total 8.4 mg/dL (8.5-10.1); Chloride 105 mmol/L (98-107); Creatinine, Serum 1.04 mg/dL (0.70-1.30); EST Glomerular Filtration Rate 76 mL/min (>60); Est Glom Filt Rate - Afr Amer 92 mL/min (>60); Ferritin 125 ng/mL (26-388); Globulin 3.9 g/dL (2.2-4.2); Glucose 86 mg/dL (74-106); Iron 69 ug/dL (65-175); Potassium 3.7 mmol/L (3.5-5.1); Protein, Total 7.7 g/dL (6.4-8.2); Sodium Level 142 mmol/L (136-145)
== END | disposition home or self-care (01) ==
PROVIDERS: Family Provider Family Medicine; PCP Family Medicine; Visit Provider Family Medicine
DX: E11.65 Type 2 diabetes mellitus with hyperglycemia (principal); E87.5 Hyperkalemia; N28.9 Disorder of kidney and ureter, unspecified; R94.5 Abnormal results of liver function studies
CPT/HCPCS: 36415; 80053; 82728; 83036; 83540; 85025

== ENCOUNTER → 2019-01-18 | Outpatient (CLI) | payer MEDICARE, OTHER, SELFPAY ==
[2018-10-06 22:17] VITALS: BMI 26.6
[2019-01-18 17:49] LABS: Absolute Lymphocyte Count 2.67 X10^3/ul (0.83-4.51); Basophil# 0.02 X10^3/uL; Basophil% 0.3 % (0-1); Hematocrit 41.9 % (40-54); Hemoglobin 14.1 g/dl (13.0-16.5); Lymphocyte # 2.67 X10^3/ul (4.0); Lymphocyte % 35.6 % (19-41); Mean Corp Hgb Conc 33.7 g/gl (32-36); Mean Corpuscular Hgb 29.4 pg (27.0-32.0); Mean Corpuscular Volume 87.3 fL (80-94); Mean Platelet Vol. 11.8 fl (6.2-12.0); Monocyte# 0.85 X10^3/uL; Monocyte% 11.3 % (0-10); Neutrophil # 3.96 X10^3/uL (2.7-7.7); Neutrophil % 52.7 % (47-70); Platelet Count 202 K/mm3 (150-450); RBC Distribution Width CV 12.5 % (11.6-14.6); RBC Distribution Width SD 40.2 fl (35.1-43.9); White Blood Count 7.5 K/mm3 (4.4-11.0)
[2019-01-18 17:52] LABS: POSITIVE COUNT NO; POSITIVE DIFFERENTIAL NO; POSITIVE MORPHOLOGY NO
[2019-01-18 18:06] LABS: AST(SGOT) 32 U/L (15-37); Alanine Aminotransfer ALT/SGPT 51 U/L (16-61); Albumin, Serum 3.9 g/dL (3.2-5.0); Alkaline Phosphatase 123 U/L (45-117); Anion Gap 8 (5-15); BUN 21 mg/dL (7-18); BUN/Creat Ratio 20.2 RATIO (10-20); Calcium,Total 8.5 mg/dL (8.5-10.1); Chloride 108 mmol/L (98-107); Creatinine, Serum 1.04 mg/dL (0.70-1.30); EST Glomerular Filtration Rate 76 mL/min (>60); Est Glom Filt Rate - Afr Amer 92 mL/min (>60); Ferritin 45 ng/mL (26-388); Globulin 3.8 g/dL (2.2-4.2); Glucose 94 mg/dL (74-106); Iron 61 ug/dL (65-175); Potassium 4.1 mmol/L (3.5-5.1); Protein, Total 7.7 g/dL (6.4-8.2); Sodium Level 142 mmol/L (136-145)
== END | disposition home or self-care (01) ==
LOC: BFHLAB 15:06
PROVIDERS: Family Provider Family Medicine; PCP Family Medicine; Visit Provider Family Medicine
DX: R94.5 Abnormal results of liver function studies (principal); D50.9 Iron deficiency anemia, unspecified; E11.65 Type 2 diabetes mellitus with hyperglycemia; E87.6 Hypokalemia
CPT/HCPCS: 36415; 80053; 82728; 83540; 85025

== ENCOUNTER → 2019-01-22 | Outpatient (CLI) | payer MEDICARE, OTHER, SELFPAY ==
[2018-10-06 22:17] VITALS: BMI 26.6
[2019-01-22 11:32] LABS: Bacteria 0 SEEN /hpf (None Seen); Mucous, Urine 0 SEEN /hpf (<or=2+); Red Blood Cells-Urine 0 SEEN /hpf (0-5); White Blood Cells 0 SEEN /hpf (0-5)
[2019-01-22 16:12] LABS: Squamous Epithelial Cells - UA 0-5 SEEN /hpf (0-5)
== END | disposition home or self-care (01) ==
LOC: LAB.FUTURE 11:30
PROVIDERS: Family Provider Family Medicine; PCP Family Medicine; Visit Provider Family Medicine
DX: D50.9 Iron deficiency anemia, unspecified (principal)

== ENCOUNTER 2019-03-09 06:38 | Day surgery (SDC) | payer MEDICARE, OTHER, SELFPAY ==
--- NOTE | 2019-02-16 05:41 | HP_ITS ---
Intake Vital Signs 02/16/19 Body Mass Index (BMI) 26.6 02/16/19 Height 5 ft 11 in 02/16/19 Weight: 198 lb 02/16/19 Body Mass Index (BMI) 27.6 02/16/19 Blood Pressure 157/88 H 02/16/19 Blood Pressure Location Rt brachial 02/16/19 Blood Pressure Position Sitting 02/16/19 Respiratory Rate 18 02/16/19 Pulse Rate 76 Intake Visit Reasons: Anemia/needs egd & c-scope Chief Complaint: HHNK Statistical Programmer Required: No Is patient in pain?: No Allergies codeine Allergy (Verified 02/16/19 12:53) Anaphylaxis Medications Dextrose [Glucose Gel] 38 gm PO UD #1 gel..gram. 10/28/14 [Rx Confirmed 02/16/19] Fluticasone 0.05% [Flonase Nasal [place]] 2 spray NASAL DAILY #1 bottle 10/08/18 [Rx Confirmed 02/16/19] Insulin Glargine [Lantus SoloStar Pen] 10 units SUBCUT BID #1 pen 10/08/18 [Rx Confirmed 02/16/19] Metformin HCl 500 mg PO BID #60 tab 10/08/18 [Rx Confirmed 02/16/19] atorvastatin 80 mg tablet 20 mg PO QHS tab 02/16/19 [History] ranitidine 150 mg tablet 150 mg PO DAILY 02/16/19 [History Confirmed 02/16/19] PFSH Medical History HHNC (hyperglycemic hyperosmolar nonketotic coma) (Acute) Acute metabolic encephalopathy (Acute) GERD (gastroesophageal reflux disease) (Chronic) Overweight (BMI 25.0-29.9) (Chronic) Surgical History Status post cataract extraction (Acute) Social History (Updated 02/16/19 @ 17:41 by Tung Trinidad MD) Smoking Status: Former smoker alcohol intake: current alcohol intake frequency: a few times a month HPI HPI HPI: MIR DAVILA, is a 63 M who presents to the office today for HPI HPI Surgical H&P: Yes HPI: MIR DAVILA, is a 63 M who presents to the office today for surgical consultation by Dr. Timbo Greco. A written compromise surgical consult recommendations will return to him. The patient carries a diagnosis of iron deficiency anemia. A request has been made to consider a combined upper and lower endoscopy. The patient in the past is been medically noncompliant. He was recently hospitalized with diabetes [id number]. He claims that he does not notice any change in his stools. He has noticed any bright red blood per rectum or melena. No abdominal pain. Over the past year however he has had a 25 to 30 pound weight loss. At age 63 he has never had a colonoscopy. He denies family history of colon cancer. As of January 18, 2019 his iron level was low at 61. Ferritin was 45 with low normal being 26 at that particular setting his hemoglobin is 14.1 with hematocrit of 41.9 platelet count 202,000 he had been on iron replacement. ROS General General: No weight change, appetite, fatigue, colon cancer, breast cancer or weakness HEENT HEENT: Yes eye injury and eye surgery; no difficulty swallowing, swollen glands or hoarseness Endo Endocrine: Yes diabetes mellitus; no thyroid disease, thyroid cancer, Hair loss, heat intolerance or cold intolerance Skin Skin: No rash or changing moles Breast Breast: No left breast lump, right breast lump, nipple discharge, breast pain, abnormal mammogram, abnormal US or breast enlargement Musc Musculoskeletal: No back problems, arthritis, rheumatoid arthritis, gout or joint pain Cardio Cardiovascular: Yes murmur; no pacemaker, heart disease, atrial fibrillation, high blood pressure, heart attack, heart stent, palpitations, shortness of breat with exertion or chest pain Psych Psychiatric: No depression, anxiety or hearing voices Resp Respiratory: No shortness of breath, No sleep apnea, No cough, No COPD, No asthma, No emphysema, No wheezing Gastro Gastrointestinal: No abdominal pain, No nausea or vomiting, No diarrhea, No constipation, No blood in stool, Yes acid reflux, No hemorrhoids, No ulcers, No gallbladder problem, No black,tarry stools Brant Hematologic: No blood thinners, No blood disorders, No bleeding, No anemia, No blood clots Neuro Neurologic: No system reviewed and no additional complaints, except as docu, No as per HPI, No abnormal walking, No abnormal hearing, No abnormal movements, No abnormal speech, No behavioral changes, No burning sensations, No confusion, No seizure-like activity, No unsteadiness, No dizziness, No localized weakness, No frequent falls, No headache(s), No lack of coordination, No loss of vision, No memory loss, No numbness, No other visual disturbances, No radiating pain, No restless legs, No sensory deficit, No fainting, No tingling, No tremor(s), No weakness, No other Exam Const General: cooperative, comfortable, no acute distress Nutritional Appearance: average body habitus Orientation: alert, awake Chest Breast Palpation: No nipple discharge Resp Effort & Inspection: normal respiratory effort Auscultation: clear to auscultation bilaterally Cardio Rate: regular rate Rhythm: regular rhythm Heart Sounds: murmur GI Palpation: soft, no hepatosplenomegaly Auscultation: normal bowel sounds Neuro Cognition: normal cognition Extrem General: no calf tenderness bilaterally Psych Affect: normal affect Assessment & Plan Problems 1. Iron deficiency anemia, unspecified iron deficiency anemia type D50.9 Plan The patient is referred by his primary care physician for evaluation of iron deficiency anemia. He has had an opting to ask and have questions answered. I anticipate a combined esophagogastroduodenoscopy with possible biopsy as well as colonoscopy with possible biopsy or polypectomy as indicated. He is aware of the technique, benefit, risk and alternatives. He has had an opportunity to ask and have questions answered. We will schedule proceed at his discretion. I very much appreciate the kind opportunity of assisting with her surgical care. cc:Dr Timbo Trinidad M.D., F.A.C.S. Coding Level of Care Code 03783 Diagnoses Iron deficiency anemia, unspecified iron deficiency anemia type D50.9 ??Iron deficiency anemia type: unspecified iron deficiency 02/16/19 1742 <Electronically signed by Tung jung MD> Date _ Tung Trinidad MD I have re-examined the patient. There are no clinical changes since date of exam.
[2019-02-16 12:54] VITALS: BMI 26.6
[2019-03-09 06:59] VITALS: BP 153/69; PULSE 78; RESP 16; TEMP 36.5; O2SAT 99; BMI 28.1
[2019-03-09] MEDS: Lactated Ringers 1,000 ML 100 ML IV (07:15)
[2019-03-09 07:20] LABS: Bedside Glucose 104 mg/dL (70-110)
--- NOTE | 2019-03-09 08:00 | EGD_PTH ---
PATIENT: MIR DAVILA LOC: EN U#:[id number] AGE/SX: 63/M ROOM: RE03/09/[address]: Dr. Tung Trinidad MD : 1955 BED: DIS: 03/09/2019 SPEC #: [id number] RECD: 03/09/19 11:38 STATUS: SHAWN NEIL #: [id number] GERTRUDE: 03/09/19 08:[address]: Tung Trinidad DEPT: SURGICAL PATHOLOGY RECD BY: Maikol Hillman ENTERED: 03/09/19 12:29 SP TYPE: EGD BIOPSY OT DR: Dr. Timbo Greco MD Tissues: A - Gastric mucous membrane B - Esophageal mucous membrane Procedures: Special Stain Group II Surgery Specimen Level IV Alcian Blue/PAS (control) HEADER OPERATION: Colonoscopy, EGD ([facility] [place]) PRE-OP DIAGNOSIS: Anemia, screening colon TISSUE SUBMITTED: A - Antrum biopsy, B - Distal esophagus biopsy MICROSCOPIC DIAGNOSIS A. Antrum, biopsy: A fragment of gastric mucosa with mild congestion and minimal chronic inflammation. See comment. B. 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 Moderate chronic inflammation and changes consistent with gastroesophageal disease. Focal changes consistent with eosinophilic esophagitis. Negative for dysplasia. See comment. SJ:rg 03/10/19 COMMENT A. Immunohistochemistry for Helicobacter pylori can be performed if clinically indicated. Please notify the Laboratory if it is needed. B. Alcian blue/PAS stain with matched control is used in the evaluation of the specimen. Increased number of eosinophils (more than 20 per high power field) are noted consistent with eosinophilic esophagitis. MICROSCOPIC DESCRIPTION Slides are reviewed. GROSS DESCRIPTION A - Received in fixative is one container labeled with the patient's name and designated antrum biopsy. The specimen consists of one irregular fragment of light harris soft tissue that measures 0.3 x 0.3 x 0.1 cm. The specimen is totally submitted in one cassette. B - Received in fixative is one container labeled with the patient's name and designated distal esophagus biopsy. The specimen consists of multiple irregular fragments of light harris soft tissue that in aggregate measure 1.5 x 0.4 x 0.1 cm. The specimen is totally submitted in one cassette. / JW:susan 03/09/19 TC:3 CPT: 99727 x2, 61316
--- NOTE | 2019-03-09 08:59 | OP.ENDO_ITS ---
03/09/2019 Timbo Greco Re : Upper GI endoscopy procedure for Abad Archer Dear Angus This procedure was performed on Saturday, March 09, 2019. My impressions and recommendations are as follows: Impressions : - LA Grade A reflux esophagitis. Biopsied. - 1 cm hiatal hernia. - Chronic gastritis. Biopsied. - Normal examined duodenum. Recommendations : - Discharge patient to home. - Resume previous diet. - Continue present medications. - Telephone my office for pathology results in 1 week. My findings are described in the full procedure note, which is enclosed. If I can be of further assistance, please feel free to contact me at Doctor phone number(s): Work: . Sincerely, Tung Trinidad MD 03/09/2019 8:58:47 AM This report has been signed electronically.
[2019-03-09 09:00] VITALS: BP 130/70; BP 153/69; PULSE 74; RESP 16; TEMP 36.2; O2SAT 98
--- NOTE | 2019-03-09 09:02 | OP.ENDO_ITS ---
03/09/2019 Timbo Greco Re : Colonoscopy procedure for Abad Archer Dear Angus This procedure was performed on Saturday, March 09, 2019. My impressions and recommendations are as follows: Impressions : - Anal stricture found on digital rectal exam. - Diverticulosis in the sigmoid colon and in the descending colon. - The examination was otherwise normal. - No specimens collected. No source for suspected GI blood loss anemia identified Recommendations : - Discharge patient to home. - Resume previous diet. - Continue present medications. - Repeat colonoscopy in 10 years for screening purposes. My findings are described in the full procedure note, which is enclosed. If I can be of further assistance, please feel free to contact me at Doctor phone number(s): Work: . Sincerely, Tung Trinidad MD 03/09/2019 9:01:36 AM This report has been signed electronically.
[2019-03-09 09:05] VITALS: BP 115/70; BP 153/69; PULSE 74; RESP 16; O2SAT 97
[2019-03-09 09:10] VITALS: BP 134/72; BP 153/69; PULSE 75; RESP 16; O2SAT 100
[2019-03-09 09:15] VITALS: BP 136/74; BP 153/69; PULSE 67; RESP 16; TEMP 36.3; O2SAT 95
[2019-03-09 09:50] VITALS: BP 153/69
== END 2019-03-09 09:51 | disposition home or self-care (01) ==
LOC: EN 06:41 → AC 06:41
PROVIDERS: Family Provider Family Medicine; PCP Family Medicine; Referring Provider Surgery; Visit Provider Surgery
PROC: 0DJD8ZZ Inspection of Lower Intestinal Tract, Via Natural or Artificial Opening Endoscopic (ICD-10-PCS; CPT 45378; principal; 2019-03-09 07:55)
DX: Z79.4 Long term (current) use of insulin (principal); K22.70 Barrett's esophagus without dysplasia; K21.0 Gastro-esophageal reflux disease with esophagitis; K29.70 Gastritis, unspecified, without bleeding; K57.30 Diverticulosis of large intestine without perforation or abscess without bleeding; K62.4 Stenosis of anus and rectum; K44.9 Diaphragmatic hernia without obstruction or gangrene; E66.3 Overweight; Z87.891 Personal history of nicotine dependence; E78.00 Pure hypercholesterolemia, unspecified; E11.9 Type 2 diabetes mellitus without complications; Z79.899 Other long term (current) drug therapy
CPT/HCPCS: 43239; 45378; 82962; 88305; 88313; J7120; J2405

== ENCOUNTER → 2019-06-28 16:00 | Outpatient (CLI) | payer MEDICARE, OTHER, SELFPAY ==
[2019-06-28 17:24] LABS: Absolute Lymphocyte Count 2.88 X10^3/uL (0.83-4.51); Absolute Neutrophil Count 5.2 X10^3/uL (2.0-7.7); Basophil# 0.04 X10^3/uL; Basophil% 0.4 % (0-1); Hematocrit 47.7 % (40-54); Hemoglobin 15.7 g/dL (13.0-16.5); Lymphocyte # 2.88 X10^3/ul (4.0); Lymphocyte % 32.4 % (19-41); Mean Corp Hgb Conc 32.9 g/dL (32-36); Mean Corpuscular Hgb 28.9 pg (27.0-32.0); Mean Corpuscular Volume 87.8 fL (80-94); Mean Platelet Vol. 11.5 fl (6.2-12.0); Monocyte# 0.78 X10^3/uL; Monocyte% 8.8 % (0-10); NRBC Flagged by Analyzer 0 % (0-5); Neutrophil # 5.18 X10^3/uL (2.7-7.7); Neutrophil % 58.2 % (47-70); Platelet Count 203 K/mm3 (150-450); RBC Distribution Width CV 12.4 % (11.6-14.6); Red Blood Count 5.43 M/mm3 (4.6-6.2); White Blood Count 8.9 K/mm3 (4.4-11.0)
[2019-06-28 17:44] LABS: AST(SGOT) 23 U/L (15-37); Alanine Aminotransfer ALT/SGPT 34 U/L (16-61); Albumin, Serum 3.9 g/dL (3.2-5.0); Alkaline Phosphatase 77 U/L (45-117); Anion Gap 5 (5-15); BUN 23 mg/dL (7-18); BUN/Creat Ratio 18.1 RATIO (10-20); Chloride 104 mmol/L (98-107); Creatinine, Serum 1.27 mg/dL (0.70-1.30); EST Glomerular Filtration Rate 60 mL/min (>60); Est Glom Filt Rate - Afr Amer 73 mL/min (>60); Globulin 4.1 g/dL (2.2-4.2); Glucose 104 mg/dL (74-106); Iron 57 ug/dL (65-175); Potassium 4.2 mmol/L (3.5-5.1); Sodium Level 138 mmol/L (136-145); Thyroid Stim Hormone (TSH) 2.94 uIU/mL (0.358-3.74)
== END ==
PROVIDERS: Family Provider Family Medicine; PCP Family Medicine; Visit Provider Family Medicine
DX: D50.9 Iron deficiency anemia, unspecified (principal); E78.5 Hyperlipidemia, unspecified; R94.5 Abnormal results of liver function studies
CPT/HCPCS: 36415; 80053; 83540; 84443; 85025

== ENCOUNTER → 2020-11-11 09:12 | Outpatient (CLI) | payer MEDICARE, OTHER, SELFPAY ==
[2020-11-11 09:52] LABS: Absolute Lymphocyte Count 2.29 X10^3/uL (0.83-4.51); Absolute Neutrophil Count 3.3 X10^3/uL (2.0-7.7); Basophil# 0.03 X10^3/uL; Basophil% 0.5 % (0-1); Eosinophil# 0.14 X10^3/uL; Eosinophils% 2.2 % (0-5); Hematocrit 49.5 % (40-54); Hemoglobin 16.4 g/dL (13.0-16.5); Lymphocyte # 2.29 X10^3/ul (0.83-4.51); Lymphocyte % 36.2 % (19-41); Mean Corp Hgb Conc 33.1 g/dL (32-36); Mean Corpuscular Hgb 29.5 pg (27.0-32.0); Mean Corpuscular Volume 89.2 fL (80-94); Monocyte# 0.59 X10^3/uL; Monocyte% 9.3 % (0-10); NRBC Flagged by Analyzer 0 % (0-5); Neutrophil # 3.26 X10^3/uL (2.7-7.7); Neutrophil % 51.6 % (47-70); Platelet Count 231 K/mm3 (150-450); RBC Distribution Width SD 39.8 fl (35.1-43.9); Red Blood Count 5.55 M/mm3 (4.6-6.2); White Blood Count 6.3 K/mm3 (4.4-11.0)
[2020-11-11 10:11] LABS: Microalbumin,Random Urine 61.4 mg/L (NO RANGE EST.); Microalbumin:Creatinine Ratio 54.3 mg/g CRE (<30 mg/g CRE)
[2020-11-11 10:33] LABS: ALB/GLOB Ratio 0.9 RATIO (0.9-2.4); AST(SGOT) 25 U/L (15-37); Alanine Aminotransfer ALT/SGPT 33 U/L (16-61); Albumin, Serum 3.9 g/dL (3.2-5.0); Alkaline Phosphatase 94 U/L (45-117); Anion Gap 6 (5-15); BUN 22 mg/dL (7-18); BUN/Creat Ratio 18.6 RATIO (10-20); Calcium,Total 8.8 mg/dL (8.5-10.1); Chloride 103 mmol/L (98-107); Cholesterol 167 mg/dL (200); Creatinine, Serum 1.18 mg/dL (0.70-1.30); EST Glomerular Filtration Rate 65 mL/min (>60); Est Glom Filt Rate - Afr Amer 79 mL/min (>60); Globulin 4.2 g/dL (2.2-4.2); Glucose 120 mg/dL (74-106); High Density Lipoprotein 45 mg/dL; Potassium 4.1 mmol/L (3.5-5.1); Protein, Total 8.1 g/dL (6.4-8.2); Sodium Level 138 mmol/L (136-145); Thyroid Stim Hormone (TSH) 1.54 uIU/mL (0.358-3.74); Triglycerides 116 mg/dL; Very Low Density Lipoprotein 23 mg/dL (5-40)
== END ==
PROVIDERS: PCP Family Medicine; Referring Provider Family Medicine; Visit Provider Family Medicine
DX: E11.9 Type 2 diabetes mellitus without complications (principal); E78.5 Hyperlipidemia, unspecified; I10 Essential (primary) hypertension
CPT/HCPCS: 36415; 80053; 80061; 82043; 82570; 84443; 85025

== ENCOUNTER 2021-08-20 18:17 | Outpatient (CLI) | payer MEDICARE, OTHER, SELFPAY | END 2021-08-20 23:59 | disposition short-term general hospital (02) | PROVIDERS: PCP Family Medicine; Referring Provider Family Medicine; Visit Provider Family Medicine | DX: Z20.822 Contact with and (suspected) exposure to COVID-19 (principal) | CPT/HCPCS: 87635; U0003; U0005 ==

== ENCOUNTER 2022-03-12 06:09 | Day surgery (SDC) | payer MEDICARE, OTHER, SELFPAY ==
--- NOTE | 2022-03-12 | GASB_PTH ---
PATIENT: MIR DAVILA LOC: EN U#:[id number] AGE/SX: 66/M ROOM: RE03/12/[address]: Dr. Tung Trinidad MD : 1955 BED: DIS: 03/12/2022 SPEC #: [id number] RECD: 03/12/22 10:56 STATUS: SHAWN NEIL #: [id number] GERTRUDE: 03/12/22 00:[address]: Tung Trinidad DEPT: SURGICAL PATHOLOGY RECD BY: Renny Smith ENTERED: 03/12/22 10:56 SP TYPE: Gastric Bx OTHR DR: Dr. Timbo Greco MD Tissues: A - Gastric mucous membrane B - Esophageal mucous membrane C - Esophageal mucous membrane Procedures: Special Stain Group II Surgery Specimen Level IV Alcian Blue/PAS (control) HEADER OPERATION: EGD ([facility] [place] PRE-OP DIAGNOSIS: Herbert?s esophagus TISSUE SUBMITTED: A ? Antrum biopsy for H. pylori and path, B ? Distal esophagus biopsy, C ? Mid esophagus biopsy MICROSCOPIC DIAGNOSIS A. Gastric antrum, biopsy: Mild chronic gastritis. See comment. B. Distal esophagus, biopsy: Gastroesophageal junctional mucosa with chronic inflammation. Changes of reflux esophagitis. Goblet cell metaplasia consistent with Herbert?s esophagus. No evidence of dysplasia. See comment. C. Mid esophagus, biopsy: No pathologic change. AM:susan 03/13/2022 COMMENT A. The results of immunohistochemistry for Helicobacter pylori will be reported separately ([id number]). B. Immunohistochemistry ([id number]) for P53 and Ki-67 will be performed and results will be reported separately. Alcian blue/PAS stain with matched control supports the above diagnosis. MICROSCOPIC DESCRIPTION Slides are reviewed. GROSS DESCRIPTION A - Received in fixative is one container labeled with the patient's name and designated gastric antrum. The specimen consists of one irregular fragment of light harris soft tissue that measures 0.5 x 0.5 x 0.1 cm. The specimen is totally submitted in one cassette. B - Received in fixative is one container labeled with the patient's name and designated distal esophagus biopsy. The specimen consists of multiple irregular fragments of light harris soft tissue that in aggregate measure 1.5 x 0.6 x 0.1 cm. The specimen is totally submitted in one cassette. C - Received in fixative is one container labeled with the patient's name and designated mid esophagus. The specimen consists of one irregular fragment of light harris soft tissue that measures 0.6 x 0.3 x 0.1 cm. The specimen is totally submitted in one cassette. / AM:susan 03/12/2022 TC:3 CPT: 83759 x3, 68836
--- NOTE | 2022-03-12 06:16 | PCM.HP.BLA ---
History and Physical Date of Admission: 03/12/22 Chief Complaint: EGD Consult Mobile Phone Salesperson Required: No Is patient in pain?: No Allergies codeine Allergy (Verified 01/31/22 07:44) Anaphylaxis Medications metformin 500 mg tablet 500 mg PO BID #60 tabs 10/08/18 [Rx Confirmed 01/31/22] atorvastatin 80 mg tablet 20 mg PO QHS 02/16/19 [History Confirmed 01/31/22] ranitidine HCl 150 mg tablet ([employer] Counter Assistant (ranitidine)) 150 mg PO DAILY 02/16/19 [History Confirmed 01/31/22] insulin glargine 100 unit/mL (3 mL) subcutaneous pen 3 units subcut BID 03/04/19 [History Confirmed 01/31/22] PFSH Medical History? 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 Smoking Status:? Former smoker alcohol intake:? current alcohol intake frequency: a few times a month HPI HPI HPI: MIR DAVILA, is a 66 M who presents to the office today for surgical follow-up of findings from a previous endoscopic evaluation March 09, 2019.? At that time an upper endoscopy demonstrated reflux esophagitis and a 1 cm hiatal hernia and chronic gastritis.? Gastric biopsies showed mild congestion and minimal chronic inflammation.? The distal esophageal biopsies showed intestinal metaplasia consistent with Herbert's esophagus.? There is moderate chronic inflammation can changes consistent with gastroesophageal reflux disease.? There are additional focal changes consistent with eosinophilic esophagitis.? There is no evidence of any dysplasia.? Recommendations at that time were to initiate omeprazole therapy 40 mg daily and then convert to ranitidine 150 mg twice daily long-term.? The patient had been referred at that time for iron deficiency anemia.? He had not been having any epigastric pain.? Forepart Rounder referral was then held for the time being.? Follow-up upper endoscopy for the Herbert's esophagus recommended in 3 years.? Colonoscopy demonstrated an anal stricture and diverticulosis of the sigmoid and descending colon with follow-up at 10 years recommended.? It appears that H. pylori was never performed per pathology. Has no complaints today.? Currently apparently he is on omeprazole 20 mg daily.? Initially he stated that he takes it as needed but then corrected it and says that he does take that on a daily basis.? He is not currently on ranitidine.? He has no complaints.? He suffers no symptoms from the eosinophilic esophagitis and he does not since reflux symptoms.? He does not use tobacco. Laboratory as of November 11, 2020 at that point demonstrated white count was 6.3 with a hemoglobin 16.4, hematocrit of 49.5 platelet count 231,000 He is not currently on any iron supplementation ROS General General: No weight change, appetite, fatigue, colon cancer, breast cancer or weakness HEENT HEENT: No difficulty swallowing, eye injury, eye surgery, swollen glands or hoarseness Endo Endocrine: Yes diabetes mellitus; No thyroid disease, thyroid cancer, Hair loss, heat intolerance or cold intolerance Skin Skin: No rash or changing moles Breast Breast: No left breast lump, right breast lump, nipple discharge, breast pain, abnormal mammogram, abnormal US or breast enlargement Musc Musculoskeletal: No back problems, arthritis, rheumatoid arthritis, gout or joint pain Cardio Cardiovascular: Yes high blood pressure; No murmur, pacemaker, heart disease, atrial fibrillation, heart attack, heart stent, palpitations, shortness of breat with exertion or chest pain Psych Psychiatric: No depression, anxiety or hearing voices Resp Respiratory: No shortness of breath, No sleep apnea, No cough, No COPD, No asthma, No emphysema and No wheezing Gastro Gastrointestinal: No abdominal pain, No nausea or vomiting, No diarrhea, No constipation, No blood in stool, No acid reflux, No hemorrhoids, No ulcers, No gallbladder problem and No black,tarry stools Brant Hematologic: No blood thinners, No blood disorders, No bleeding, No anemia and No blood clots Neuro Neurologic: No system reviewed and no additional complaints, except as documented, No as per HPI, No abnormal gait, No abnormal hearing, No abnormal movements, No abnormal speech, No behavioral changes, No burning sensations, No confusion, No convulsions, No disequilibrium, No dizziness, No localized weakness, No frequent falls, No headache(s), No lack of coordination, No loss of vision, No memory loss, No numbness, No other visual disturbances, No radicular pain, No restless legs, No sensory deficit, No syncope, No tingling, No tremor(s), No weakness and No other Exam Const General: cooperative, healthy appearing, comfortable and no acute distress [facility] Head: normal to inspection Neck Neck: normal visual inspection Resp Effort & Inspection: normal respiratory effort Auscultation: clear to auscultation bilaterally Cardio Rate: regular rate Rhythm: regular rhythm Other: Soft 2/6 systolic ejection murmur GI Palpation: soft and no hepatosplenomegaly Auscultation: normal bowel sounds Musc Other: Mild cervical kyphosis Neuro General: patient alert, patient awake and patient oriented x3 Extrem General: no calf tenderness Psych Appearance: grossly normal Assessment and Plan Assessment and Plan (1) 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 He is intolerant to codeine which apparently makes him cough.? We will utilize monitored anesthesia care.? He is aware of the technique, benefit, risk, alternatives.? He has had an opportunity ask and have questions answered.? It appears that his previous iron deficiency anemia has resolved. I have re-examined the patient. There are no clinical changes since date of exam. Tung Trinidad M.D., F.A.C.S.
[2022-03-12 06:50] VITALS: BP 183/89; PULSE 84; RESP 16; TEMP 36.8; O2SAT 100; BMI 29.7
[2022-03-12] MEDS: Lactated Ringers 1,000 ML 15 ML IV (06:55)
--- NOTE | 2022-03-12 07:30 | IMM_PTH ---
PATIENT: MIR DAVILA LOC: EN U#:[id number] AGE/SX: 66/M ROOM: RE03/12/[address]: Dr. Tung Trinidad MD : 1955 BED: DIS: 03/12/2022 SPEC #: [id number] RECD: 03/12/22 12:41 STATUS: SHAWN REFeliciano #: [id number] GERTRUDE: 03/12/22 07:[address]: Tung Trinidad DEPT: IMMUNOHISTOCHEMISTRY RECD BY: Stephenie Argueta ENTERED: 03/12/22 12:41 SP TYPE: IMMUNO OTHR DR: Dr. Timbo Greco MD Tissues: A - Stomach, NOS B - Esophagus, NOS Procedures: H Pylori (initial) P53 (initial) KI-67 (add) PHYSICIAN & INSTITUTION [place] [id number] SPECIMEN INFORMATION: Tissue Source: A ? Antrum biopsy, B ? Distal esophagus biopsy Clinical Info: Herbert?s esophagus Specimen Number: [id number] A & B CPT code: 35159 x2, 10809 METHODOLOGY: Deparaffinized sections of prefer/formalin-fixed tissue or PAP/DQ stained slides are incubated with monoclonal/polyclonal antibodies/oligonucleotide probes. Localization is made via biotin free immunoperoxidase method. Appropriate controls are performed and reacted as expected. Results on target cell population are indicated in the following table: RESULTS: ANTIBODY / CLONE RESULT Block A H Pylori (polyclonal) negative Block B P53 (DO-7) positive, low Ki-67 (30-9) negative These tests were developed and their performance characteristics determined by [facility]. They may not have been cleared or approved by the U.S. Food and Drug Administration. The FDA has determined that such clearance or approval is not necessary. The above immunohistochemical/dualISH markers are ordered and reviewed by the Pathologist. INTERPRETATION: A. Antrum, biopsy: Negative for Helicobacter pylori organisms. B. Distal esophagus, biopsy: No evidence of dysplasia. AM:susan 03/14/2022
--- NOTE | 2022-03-12 08:04 | OP.CCLET_ITS ---
03/12/2022 Timbo Greco Re : Upper GI endoscopy procedure for Abad Archer Dear Angus This procedure was performed on Saturday, March 12, 2022. My impressions and recommendations are as follows: Impressions : - LA Grade A reflux esophagitis. Biopsied. - Normal mid esophagus. Biopsied. - Small hiatal hernia. - Chronic gastritis. Biopsied. - Normal examined duodenum. Recommendations : - Discharge patient to home. - Resume previous diet. - Continue present medications. - Telephone my office for pathology results in 1 week. My findings are described in the full procedure note, which is enclosed. If I can be of further assistance, please feel free to contact me at Doctor phone number(s): Work: . Sincerely, Tung Trinidad MD 03/12/2022 8:03:24 AM This report has been signed electronically.
--- NOTE | 2022-03-12 08:04 | OP.EGD_ITS ---
Patient Name: Abad Archer Procedure Date: 03/12/2022 7:36 AM Date of : 1955 Age: 66 Procedure: Upper GI endoscopy Indications: Follow-up of Herbert's esophagus Providers: Tung Trinidad MD Referring MD: Tung Trinidad MD Medicines: See the Anesthesia note for documentation of the administered medications Complications: No immediate complications. Procedure: Pre-Anesthesia Assessment: - Prior to the procedure, a History and Physical was performed, and patient medications and allergies were reviewed. The patient's tolerance of previous anesthesia was also reviewed. The risks and benefits of the procedure and the sedation options and risks were discussed with the patient. All questions were answered, and informed consent was obtained. Prior Anticoagulants: The patient has taken no previous anticoagulant or antiplatelet agents. ASA Grade Assessment: II - A patient with mild systemic disease. After reviewing the risks and benefits, the patient was deemed in satisfactory condition to undergo the procedure. After obtaining informed consent, the endoscope was passed under direct vision. Throughout the procedure, the patient's blood pressure, pulse, and oxygen saturations were monitored continuously. The gastroscope was introduced through the mouth, and advanced to the second part of duodenum. The upper GI endoscopy was accomplished without difficulty. The patient tolerated the procedure well. Scope In: 7:48:28 AM Scope Out: 7:58:02 AM Total Procedure Duration Time 0 hours 9 minutes 34 seconds Findings: LA Grade A (one or more mucosal breaks less than 5 mm, not extending between tops of 2 mucosal folds) esophagitis with no bleeding was found 41 cm from the incisors. Biopsies were taken with a cold forceps for histology. The mid esophagus was normal. Biopsies were taken with a cold forceps for histology. A small hiatal hernia was present. Diffuse mild inflammation characterized by erythema was found in the gastric antrum. Biopsies were taken with a cold forceps for histology. The examined duodenum was normal. Impression: - LA Grade A reflux esophagitis. Biopsied. - Normal mid esophagus. Biopsied. - Small hiatal hernia. - Chronic gastritis. Biopsied. - Normal examined duodenum. Recommendation: - Discharge patient to home. - Resume previous diet. - Continue present medications. - Telephone my office for pathology results in 1 week. Procedure Code(s): --- Professional --- 80460, Esophagogastroduodenoscopy, flexible, transoral; with biopsy, single or multiple Diagnosis Code(s): --- Professional --- K21.0, Gastro-esophageal reflux disease with esophagitis K22.70, Herbert's esophagus without dysplasia K44.9, Diaphragmatic hernia without obstruction or gangrene K29.50, Unspecified chronic gastritis without bleeding CPT copyright 2017 [employer]. All rights reserved. The codes documented in this report are preliminary and upon vessel manager review may be revised to meet current compliance requirements. Tung Trinidad MD 03/12/2022 8:03:24 AM This report has been signed electronically. Number of Addenda: 0 Note Initiated On: 03/12/2022 7:36 AM
[2022-03-12 08:12] VITALS: BP 150/71; BP 183/89; PULSE 75; RESP 18; TEMP 37.3; O2SAT 99
[2022-03-12 08:15] VITALS: BP 157/75; BP 183/89; PULSE 72; RESP 18; O2SAT 96
[2022-03-12 08:15] LABS: Bedside Glucose 179 mg/dL (74-106)
[2022-03-12 08:19] VITALS: BP 157/81; BP 183/89; PULSE 71; RESP 18; O2SAT 97
[2022-03-12 08:22] VITALS: BP 168/79; BP 183/89; PULSE 75; TEMP 36.4; O2SAT 97
== END 2022-03-12 08:39 | disposition home or self-care (01) ==
LOC: EN 06:12 → AC 06:14
PROVIDERS: PCP Family Medicine; Referring Provider Family Medicine; Visit Provider Surgery
PROC: 0DJ08ZZ Inspection of Upper Intestinal Tract, Via Natural or Artificial Opening Endoscopic (ICD-10-PCS; CPT 43235; principal; 2022-03-12 07:25)
DX: K22.70 Barrett's esophagus without dysplasia (principal); K44.9 Diaphragmatic hernia without obstruction or gangrene; K31.89 Other diseases of stomach and duodenum; K21.00 Gastro-esophageal reflux disease with esophagitis, without bleeding; K29.50 Unspecified chronic gastritis without bleeding; I10 Essential (primary) hypertension; G89.29 Other chronic pain; Z79.899 Other long term (current) drug therapy; Z79.84 Long term (current) use of oral hypoglycemic drugs; Z87.891 Personal history of nicotine dependence
CPT/HCPCS: 43239; 82962; 88305; 88313; 88341; 88342; J7120

== ENCOUNTER → 2023-05-16 | Outpatient (CLI) | payer MEDICARE, OTHER, SELFPAY ==
--- NOTE | 2023-05-16 11:26 | RAD_ITS ---
HISTORY: PAIN. TECHNIQUE: XR Spine Cervical 4 or 5 Views. COMPARISON: None. FINDINGS: VERTEBRAE: Vertebral body heights maintained. Chronic well-corticated fragment of the C7 spinous process from old fracture or ligamentous ossification. ALIGNMENT: No significant anterior or posterior subluxation. Preservation of the cervical lordosis. INTERVERTEBRAL DISCS: Mild intervertebral disc space narrowing with endplate change and small osteophytes of C5-6 and C6=7. SOFT TISSUES: No significant prevertebral soft tissue swelling. RAD/Cerv Spine 4 or 5 Views IMPRESSION: No acute fracture or dislocation identified in the cervical spine. Mild degenerative change. Electronically Signed: Courtney Begum MD at 9:10 EDT ,
--- NOTE | 2023-05-16 11:27 | RAD_ITS ---
HISTORY: PAIN. TECHNIQUE: XR Shoulder Min 2 Views. COMPARISON: Chest 10/28/2014. FINDINGS: BONES : No acute fracture identified. Mineralization unremarkable. JOINTS: No dislocation. Mild degenerative change. SOFT TISSUES: Chronic calcified granuloma in the right upper lobe. RAD/Shoulder min 2 Views IMPRESSION: No acute fracture or dislocation identified in the right shoulder. Mild degenerative change. Electronically Signed: Courtney Begum MD at 12:01 EDT ,
--- NOTE | 2023-05-16 11:30 | RAD_ITS ---
HISTORY: PAIN. TECHNIQUE: XR Knee Complete 4 Views or More. COMPARISON: None. FINDINGS: BONES : No acute fracture identified. Degenerative sclerosis and osteophytes of the medial joint compartment. JOINTS: No dislocation. Moderate-severe medial compartment joint space narrowing. Trace effusion. SOFT TISSUES: Mild anterior soft tissue swelling. RAD/Knee 4 or More Views IMPRESSION: No acute fracture or dislocation identified . Osteoarthritis of the left knee with mild soft tissue swelling. Electronically Signed: Courtney Begum MD at 12:03 EDT ,
[2023-05-16 15:30] LABS: Absolute Lymphocyte Count 2.42 X10^3/uL (0.83-4.51); Absolute Neutrophil Count 4.4 X10^3/uL (2.0-7.7); Basophil# 0.05 X10^3/uL; Basophil% 0.6 % (0-1); Eosinophil# 0.19 X10^3/uL; Eosinophils% 2.4 % (0-5); Hematocrit 46.4 % (40-54); Hemoglobin 15.2 g/dL (13.0-16.5); Lymphocyte # 2.42 X10^3/ul (0.83-4.51); Lymphocyte % 30.8 % (19-41); Mean Corp Hgb Conc 32.8 g/dL (32-36); Mean Corpuscular Hgb 29.7 pg (27.0-32.0); Mean Corpuscular Volume 90.8 fL (80-94); Mean Platelet Vol. 11.6 fl (6.2-12.0); Monocyte# 0.76 X10^3/uL; Monocyte% 9.7 % (0-10); NRBC Flagged by Analyzer 0 % (0-5); Neutrophil # 4.41 X10^3/uL (2.7-7.7); Neutrophil % 56.2 % (47-70); Platelet Count 234 K/mm3 (150-450); RBC Distribution Width CV 12.6 % (11.6-14.6); RBC Distribution Width SD 42.1 fl (35.1-43.9); Red Blood Count 5.11 M/mm3 (4.6-6.2); White Blood Count 7.9 K/mm3 (4.4-11.0)
[2023-05-16 16:07] LABS: AST(SGOT) 21 U/L (15-37); Alanine Aminotransfer ALT/SGPT 22 U/L (16-61); Albumin, Serum 3.9 g/dL (3.2-5.0); Alkaline Phosphatase 85 U/L (45-117); Anion Gap 7 (5-15); BUN 17 mg/dL (7-18); BUN/Creat Ratio 14.8 RATIO (10-20); Calcium,Total 9.1 mg/dL (8.5-10.1); Chloride 101 mmol/L (98-107); Cholesterol 176 mg/dL (200); Creatinine, Serum 1.15 mg/dL (0.70-1.30); EST Glomerular Filtration Rate 67 mL/min (>60); Est Glom Filt Rate - Afr Amer 81 mL/min (>60); Globulin 3.8 g/dL (2.2-4.2); Glucose 123 mg/dL (74-106); High Density Lipoprotein 38 mg/dL; Potassium 4.2 mmol/L (3.5-5.1); Protein, Total 7.7 g/dL (6.4-8.2); Sodium Level 134 mmol/L (136-145); Triglycerides 245 mg/dL; Very Low Density Lipoprotein 49 mg/dL (5-40)
[2023-05-16 16:33] LABS: Microalbumin,Random Urine 12.6 mg/L (NO RANGE EST.); Microalbumin:Creatinine Ratio 22.9 mg/g CRE (<30 mg/g CRE)
== END | disposition home or self-care (01) ==
LOC: MTLAB 11:25
PROVIDERS: PCP Nurse Practitioner Family; Referring Provider Nurse Practitioner Family; Visit Provider Nurse Practitioner Family
DX: M54.2 Cervicalgia (principal); E11.65 Type 2 diabetes mellitus with hyperglycemia; M25.511 Pain in right shoulder; M25.562 Pain in left knee; E78.5 Hyperlipidemia, unspecified; I10 Essential (primary) hypertension
CPT/HCPCS: 36415; 72050; 73030; 73564; 80053; 80061; 82043; 82570; 85025

== ENCOUNTER → 2023-11-17 | Outpatient (CLI) | payer MEDICARE, OTHER, SELFPAY ==
[2023-11-17 17:51] LABS: Absolute Lymphocyte Count 1.14 X10^3/uL (0.83-4.51); Absolute Neutrophil Count 8.4 X10^3/uL (2.0-7.7); Basophil# 0.03 X10^3/uL; Basophil% 0.3 % (0-1); Hematocrit 43.1 % (40-54); Hemoglobin 14.5 g/dL (13.0-16.5); Lymphocyte # 1.14 X10^3/ul (0.83-4.51); Lymphocyte % 10.5 % (19-41); Mean Corp Hgb Conc 33.6 g/dL (32-36); Mean Corpuscular Hgb 30.1 pg (27.0-32.0); Mean Corpuscular Volume 89.4 fL (80-94); Mean Platelet Vol. 11.5 fl (6.2-12.0); Monocyte# 1.27 X10^3/uL; Monocyte% 11.7 % (0-10); NRBC Flagged by Analyzer 0 % (0-5); Neutrophil # 8.37 X10^3/uL (2.7-7.7); Neutrophil % 77.1 % (47-70); Platelet Count 189 K/mm3 (150-450); RBC Distribution Width CV 12.4 % (11.6-14.6); RBC Distribution Width SD 41.2 fl (35.1-43.9); Red Blood Count 4.82 M/mm3 (4.6-6.2); White Blood Count 10.9 K/mm3 (4.4-11.0)
[2023-11-17 18:14] LABS: ALB/GLOB Ratio 0.7 RATIO (0.9-2.4); AST(SGOT) 22 U/L (15-37); Alanine Aminotransfer ALT/SGPT 22 U/L (16-61); Albumin, Serum 3.3 g/dL (3.2-5.0); Alkaline Phosphatase 106 U/L (45-117); Anion Gap 9 (5-15); BUN 14 mg/dL (7-18); BUN/Creat Ratio 11.8 RATIO (10-20); Calcium,Total 9.1 mg/dL (8.5-10.1); Chloride 95 mmol/L (98-107); Creatinine, Serum 1.19 mg/dL (0.70-1.30); EST Glomerular Filtration Rate 64 mL/min (>60); Est Glom Filt Rate - Afr Amer 78 mL/min (>60); Globulin 4.7 g/dL (2.2-4.2); Glucose 140 mg/dL (74-106); Potassium 3.8 mmol/L (3.5-5.1); Sodium Level 130 mmol/L (136-145)
== END | disposition home or self-care (01) ==
LOC: BFHLAB 11-18 13:39
PROVIDERS: PCP Nurse Practitioner Family; Referring Provider Nurse Practitioner Family; Visit Provider Nurse Practitioner Family
DX: I10 Essential (primary) hypertension (principal)
CPT/HCPCS: 36415; 80053; 85025

== ENCOUNTER → 2023-11-18 | Outpatient (CLI) | payer MEDICARE, OTHER, SELFPAY ==
[2023-11-18 16:26] LABS: Color, Urine Yellow (Yellow); Glucose, Dipstick Normal (Normal); Ketone-Dipstick Negative (Negative); Leukocyte Esterase-Dipstick 500 /ul (Negative); Nitrite-Dipstick Positive (Negative); Occult Blood-Urine 250 /ul (Negative); Protein-Dipstick 100 mg/dl (Negative); Specific Gravity, Urine 1.015 (1.002-1.030); Urine Bilirubin Dipstick Negative (Negative); Urine Clarity Turbid (Clear); Urine Urobilinogen Normal (Normal)
== END | disposition home or self-care (01) ==
LOC: LABSPEC 13:47
PROVIDERS: PCP Nurse Practitioner Family; Referring Provider Nurse Practitioner Family; Visit Provider Nurse Practitioner Family
DX: R31.9 Hematuria, unspecified (principal)
CPT/HCPCS: 81002; 87086; 87088; 87186